=== PATIENT | female | born 1940 | race Caucasian/White ===

== ENCOUNTER 2019-05-03 07:15 | Outpatient (CLI) | payer MEDICARE, SELFPAY ==
[2019-05-03 07:55] LABS: Basophils Percent Auto 0.9 % (0.2-1.2); Eosinophils Absolute Auto 0.2 K/mm3 (0-0.3); Eosinophils Percent Auto 4.8 % (0-4.4); Hematocrit 44.7 % (37.0-47.0); Immature Granulocyte Absolute 0.01 K/mm3 (0.00-0.031); Immature Granulocyte Percent A 0.2 % (0-0.5); Lymphocytes Absolute Auto 1.21 K/mm3 (0.9-3.2); Lymphocytes Percent Auto 26.1 % (18.3-44.2); Mean Corpuscular HGB Conc 31.3 g/dl (32-36); Mean Corpuscular Hemoglobin 31.2 pg (26-34); Mean Corpuscular Volume 99.6 fl (80-100); Mean Platelet Volume 9.6 fl (7.4-10.4); Monocytes Absolute Auto 0.5 K/mm3 (0.1-0.6); Monocytes Percent Auto 10.6 % (2.6-8.5); Neutrophils Absolute Auto 2.7 K/mm3 (1.3-6.7); Neutrophils Percent Auto 57.4 % (45.5-73.1); Platelet Count Result 203 k/mm3 (150-375); Red Blood Count 4.49 M/mm3 (4.2-5.4); White Blood Count 4.6 K/mm3 (4.5-10.0)
[2019-05-03 08:11] LABS: Alanine Aminotransferase 22 U/L (4-35); Albumin Level 4.1 g/dL (3.5-5.1); Alkaline Phosphatase 83 U/L (38-126); Aspartate Amino Transferase 31 U/L (14-36); Bilirubin,Total 0.4 mg/dL (0.2-1.3); Blood Urea Nitrogen 15 mg/dL (7-17); Calcium 9.3 mg/dL (8.4-10.2); Carbon Dioxide 32 mmol/L (22-30); Chloride 100 mmol/L (98-107); Cholesterol 180 mg/dL (0-200); Estimated Glomerular Filt Rate > 60; Glucose 96 mg/dL (65-105); HDL Direct 61 mg/dL; Potassium 4.4 mmol/L (3.4-5.0); Sodium 142 mmol/L (137-145); Triglycerides 77 mg/dL (<150)
[2019-05-03 08:21] LABS: LDL Cholesterol Direct 93 mg/dL
[2019-05-03 08:40] LABS: Vitamin D 25 Hydroxy 56.6 ng/mL
== END 2019-05-03 07:16 | disposition home or self-care (01) ==
PROVIDERS: PCP Internal Medicine; Visit Provider Nurse Practitioner
DX: M85.80 Other specified disorders of bone density and structure, unspecified site (principal); I10 Essential (primary) hypertension; Z13.220 Encounter for screening for lipoid disorders; Z13.228 Encounter for screening for other metabolic disorders; E03.9 Hypothyroidism, unspecified
CPT/HCPCS: 36415; 80053; 80061; 82306; 84443; 85025

== ENCOUNTER 2020-01-01 15:07 | Outpatient (CLI) | payer MEDICARE, SELFPAY ==
--- NOTE | ~2020-01-01 | MM_ITS ---
EXAMINATION: MM screening [facility] BI w melissa HISTORY: Screening mammogram TECHNIQUE: Craniocaudal and mediolateral oblique 3-D tomosynthesis images were obtained and synthetic 2-D images were generated. CAD analysis was submitted and interpreted. COMPARISON: 12/27/2018, 12/21/2017 bilateral digital screening mammogram examinations BREAST PARENCHYMAL COMPOSITION: There are scattered areas of fibroglandular density. FINDINGS: Stable subcentimeter circumscribed masses on the right. There is no evidence of suspicious mass, calcification, or architectural distortion to suggest malignancy in either breast. There has be en no suspicious interval change. IMPRESSION: 1. No mammographic evidence of malignancy. 2. Recommend routine screening mammography in one year. BI-RADS Category 2: Benign finding(s). Reviewed, dictated and finalized at location A.
== END 2020-01-01 15:08 | disposition home or self-care (01) ==
LOC: ANHIMG 15:14
PROVIDERS: PCP Internal Medicine; Visit Provider Clinical Nurse Specialist
DX: Z12.31 Encounter for screening mammogram for malignant neoplasm of breast (principal)
CPT/HCPCS: 77063; 77067

== ENCOUNTER → 2020-07-22 13:16 | Outpatient (CLI) | payer MEDICARE, SELFPAY ==
--- NOTE | ~2020-07-22 | DEXA_ITS ---
Bone Density Report Name: Radha Elena Age: 79 Sex: Female Ethnicity: White Date of : 1940 Indication: osteopenia; parental hip fracture; height loss; Referring Provider: Paige Guerrier Study: Bone densitometry was performed. Exam Date: July 22, 2020 Accession number: [id number] Bone Density: Region BMD T-score Z-score Classification AP Spine (L1-L4) 0.983 -0.6 2.1 Normal Femoral Neck (Left) 0.650 -1.8 0.5 Osteopenia Total Hip (Left) 0.761 -1.5 0.6 Osteopenia Femoral Neck (Right) 0.657 -1.7 0.6 Osteopenia Total Hip (Right) 0.814 -1.0 1.0 Normal Total Hip Mean 0.788 -1.3 0.8 Osteopenia World Health Organization criteria for BMD impression classify patients as: Normal (T-score at or above -1.0), Osteopenia (T-score between -1.0 and -2.5), or Osteoporosis (T-score at or below -2.5). 10-year Fracture Risk(1): Major Osteoporotic Fracture 25% Hip Fracture 15% Reported Risk Factors: [place] (), Neck BMD=0.657, BMI=23.2, parental fracture (1) FRAX(R) Version 3.08. Fracture probability calculated for an untreated patient. Fracture probability may be lower if the patient has received treatment. Previous Exams: Region Exam Age BMD T-score BMD Change BMD Change Date g/cm2 vs Baseline vs Previous AP Spine(L1-L4) 07/22/2020 79 0.983 -0.6 0.092* 0.083* 06/30/2016 75 0.900 -1.3 0.009 -0.038* 05/28/2014 73 0.938 -1.0 0.047* 0.055* 04/14/2012 71 0.883 -1.5 -0.008 -0.023 08/11/2009 68 0.906 -1.3 0.015 0.019 06/16/2007 66 0.887 -1.5 -0.004 0.017 07/19/2006 65 0.870 -1.6 -0.021 -0.021 07/30/2005 64 0.891 -1.4 Total Hip(Left) 07/22/2020 79 0.761 -1.5 -0.032* -0.008 07/04/2018 77 0.769 -1.4 -0.025 -0.047* 06/30/2016 75 0.816 -1.0 0.023 0.003 05/28/2014 73 0.813 -1.1 0.020 0.002 04/14/2012 71 0.811 -1.1 0.018 -0.010 08/11/2009 68 0.821 -1.0 0.028* 0.013 06/16/2007 66 0.808 -1.1 0.015 0.021 07/19/2006 65 0.787 -1.3 -0.006 -0.006 07/30/2005 64 0.793 -1.2 Total Hip(Right) 07/22/2020 79 0.814 -1.0 -0.044* 0.003 07/04/2018 77 0.811 -1.1 -0.047* -0.045* 06/30/2016 75 0.856 -0.7 -0.002 0.016 05/28/2014 73 0.840 -0.8 -0.018 0.012 04/14/2012 71 0.829 -0.9 -0.030* -0.003 08/11/2009
== END ==
PROVIDERS: PCP Internal Medicine; Visit Provider Nurse Practitioner
DX: M85.88 Other specified disorders of bone density and structure, other site (principal); M85.852 Other specified disorders of bone density and structure, left thigh; M85.851 Other specified disorders of bone density and structure, right thigh
CPT/HCPCS: 77080

== ENCOUNTER 2020-07-27 08:07 | Emergency (ER) | payer MEDICARE, SELFPAY ==
--- NOTE | 2020-07-27 08:15 | ED.GENADULT ---
HPI - General Adult General Chief complaint: Skin/Abscess/Foreign Body Stated complaint: Rash Time Seen by Provider: 07/27/20 08:23 Source: patient and RN notes reviewed Mode of arrival: ambulatory Limitations: no limitations History of Present Illness HPI narrative: 79-year-old female presents with complaints of red, raised, and itching rash to chin and neck for the past 4 days. ?Radha reports increasing itching over the past 24 hours. ?Believes rash could be related to potting soil, Tuesday07/22/20 without protective wear, noticed rash Tuesday. ?Triamcinolone cream 0.5% (received from her PCP office on 07/25/20) and Benadryl 25mg (last 03:30am today) without relief. ?Denies new changes in ?personal hygiene products or laundry detergent. ?No new foods or medications. ?Swelling to RT upper lid without eye disturbance. ?Denies eye drainage, blurred vision, or vision loss. ?No burning, bleeding, or drainage. ?Denies fever, chills, headaches, weakness, fatigue, myalgia, facial swelling, or tongue swelling. ?Denies chest pain or dyspnea. ?Denies nausea, vomiting, abdominal pain. ?Tolerating po intake well. ?The patient reports she has not been diagnosed with COVID-19. ?The patient reports she received 2 Pfizer COVID-19 vaccines. ?The patient reports she is not waiting for the results of a COVID-19 lab test. ?The patient reports she does not have a new or worsening cough or shortness of breath. ?The patient reports she does not have any rhinorrhea, congestion, sore throat, loss of taste or smell, and diarrhea. ?Denies recent traveling. ?Denies concerns for COVID-19 or exposures. ?At this time, the patient is not suspected of having COVID-19. Some parts of this dictation were generated by voice recognition software and may contain typographical and/or grammatical inaccuracies. Related Data Home Medications Medication Instructions Recorded Confirmed amlodipine 5 mg tablet 5 mg PO DAILY 05/10/19 07/25/20 calcium carbonate 500 mg (1,250 1 tablet PO DAILY 05/10/19 07/25/20 mg)-vitamin D3 200 unit tablet cholecalciferol (vitamin D3) 25 1,000 unit PO DAILY 05/10/19 07/25/20 mcg (1,000 unit) capsule cyclobenzaprine 5 mg tablet 5 mg PO DAILY PRN tablet 05/10/19 07/25/20 Allergies Allergy/AdvReac Type Severity Reaction Status Date / Time alendronate sodium Allergy Unknown Anaphylaxis Verified 07/27/20 08:15 erythromycin base Allergy Unknown GI upset Verified 07/27/20 08:15 metronidazole Allergy Unknown pass out Verified 07/27/20 08:15 Review of Systems Review of Systems: Narrative: CONSTITUTIONAL: Denies fever, chills, sweats. EYES: Denies visual changes, redness, discharge. ENT: Denies rhinorrhea, congestion, sore throat, otalgia. CARDIOVASCULAR: Denies chest pain, palpitations, edema. RESPIRATORY: Denies dyspnea, wheezing, cough. GASTROINTESTINAL: Denies abdominal pain, nausea, vomiting, diarrhea. SKIN: Complains of red, raised, and itching rash to chin and neck. Denies drainage. MUSCULOSKELETAL: Denies acute back pain, joint pain, or myalgia. NEUROLOGIC: Denies numbness or focal weakness. PSYCHIATRIC: Denies anxiety or depression. All other systems reviewed & are unremarkable except as noted in HPI and below. [facility] Past Medical History Medical History (Updated 07/27/20 @ 08:56 by JONATAN Verde) Chicken pox GERD (gastroesophageal reflux disease) Hemorrhoids Removed 09/2014 History of measles, mumps, or rubella History of vaginal delivery Hypertension Hypothyroidism IBS (irritable bowel syndrome) Lumbar back pain Mononucleosis Myocardial infarction Osteopenia Post-menopausal Vitamin deficiency Surgical History Surgical History (Updated 07/27/20 @ 08:56 by JONATAN Verde) H/O tubal ligation BL 1982 History of hemorrhoidectomy Family History Family History Mother Family history of dementia Father Family history of diabetes mellitus in [facility]
[2020-07-27 08:18] VITALS: BP 125/61; PULSE 65; RESP 16; TEMP 36.5; O2SAT 99
== END 2020-07-27 08:41 | disposition home or self-care (01) ==
PROVIDERS: Emergency Provider Nurse Practitioner Family; PCP Internal Medicine
DX: L25.9 Unspecified contact dermatitis, unspecified cause (principal); K21.9 Gastro-esophageal reflux disease without esophagitis; I10 Essential (primary) hypertension; E03.9 Hypothyroidism, unspecified; I25.2 Old myocardial infarction; M81.0 Age-related osteoporosis without current pathological fracture
CPT/HCPCS: 99213; G0463

== ENCOUNTER → 2021-01-20 13:53 | Outpatient (CLI) | payer MEDICARE, SELFPAY ==
--- NOTE | ~2021-01-20 | MM_ITS ---
EXAMINATION: MM screening [facility] BI w melissa HISTORY: Screening mammogram TECHNIQUE: Craniocaudal and mediolateral oblique 3-D tomosynthesis images were obtained and synthetic 2-D images were generated. CAD analysis was submitted and interpreted. COMPARISON: 01/01/2020, 12/27/2018 BREAST PARENCHYMAL COMPOSITION: There are scattered areas of fibroglandular density. FINDINGS: There is no evidence of suspicious mass, calcification, or architectural distortion to sugg est malignancy in either breast. There has been no suspicious interval change. IMPRESSION: 1. No mammographic evidence of malignancy. 2. Recommend routine screening mammography in one year. BI-RADS Category 1: Negative Reviewed, dictated and finalized at location A. [employer]
== END ==
PROVIDERS: PCP Internal Medicine; Visit Provider Internal Medicine
DX: Z12.31 Encounter for screening mammogram for malignant neoplasm of breast (principal)
CPT/HCPCS: 77063; 77067

== ENCOUNTER 2021-02-27 09:44 | Emergency (ER) | payer MEDICARE, SELFPAY ==
[2021-02-27 09:54] VITALS: BP 155/63; PULSE 76; RESP 16; TEMP 37.1; O2SAT 97
--- NOTE | 2021-02-27 10:41 | ED.URI ---
HPI - URI/Sore Throat General Chief Complaint: Upper Respiratory Infection Stated Complaint: SORE THROAT Time Seen by Provider: 02/27/21 10:30 Source: patient and RN notes reviewed Mode of arrival: ambulatory Limitations: no limitations History of Present Illness HPI Narrative: Patient presents today with a 2-day history of sore throat that gets better throughout the day, dry cough, rhinorrhea, sneezing. Denies fever, nausea, vomiting, diarrhea. She takes Pia during the day, Zyrtec at night, and zinc without much relief. MD elicited complaint: cough, sore throat and rhinorrhea Related Data Home Medications Medication Instructions Recorded Confirmed amlodipine 5 mg tablet 5 mg PO DAILY 05/10/19 02/24/21 calcium carbonate 500 mg-vitamin 1 tablet PO DAILY 05/10/19 02/24/21 D3 5 mcg (200 unit) tablet cholecalciferol (vitamin D3) 25 1,000 unit PO DAILY 05/10/19 02/24/21 mcg (1,000 unit) capsule multivitamin with minerals 1 tablet PO DAILY 01/14/21 02/24/21 Allergies Allergy/AdvReac Type Severity Reaction Status Date / Time alendronate sodium Allergy Unknown Anaphylaxis Verified 02/24/21 13:35 erythromycin base Allergy Unknown GI upset Verified 02/24/21 13:35 metronidazole Allergy Unknown pass out Verified 02/24/21 13:35 Review of Systems Review of Systems: CONSTITUTIONAL: Denies body aches, fever, chills, or sweats. EYES: Denies visual changes, redness, or discharge. ENT: Denies congestion, or otalgia.+ Sore throat, rhinorrhea, sneezing CARDIOVASCULAR: Denies chest pain, palpitations, or edema. RESPIRATORY: Denies dyspnea.+ Cough GASTROINTESTINAL: Denies abdominal pain, nausea, vomiting, or diarrhea. GENITOURINARY: Denies dysuria or hematuria. SKIN: Denies rash, itching, or wounds. MUSCULOSKELETAL: Denies back pain, joint pain, or myalgia. NEUROLOGIC: Denies headache, numbness, tingling, or weakness. PSYCH: Denies depression or anxiety. [facility] Past Medical History Medical History Chicken pox GERD (gastroesophageal reflux disease) Hemorrhoids Removed 09/2014 History of measles, mumps, or rubella History of vaginal delivery Hypertension Hypothyroidism IBS (irritable bowel syndrome) Lumbar back pain Mononucleosis Myocardial infarction Osteopenia Post-menopausal Vitamin deficiency Surgical History Surgical History H/O tubal ligation 1982 History of hemorrhoidectomy Family History Family History Mother Family history of dementia Father Family history of diabetes mellitus in first degree relative Acute myocardial infarction Dementia Sibling H/O aortic valve replacement Other Diabetes mellitus Family history of arthritis Hypertension Social History Social History Smoking status: Never smoker Tobacco type: cigarettes Second hand tobacco smoke exposure: No Alcohol intake: current Substance use: never Substance use type: does not use Gender identity (if verbalized by the patient): Female Sexual Orientation (if Verbalized by the Patient): Straight or Heterosexual Comments At time of signature, I have reviewed and agree with nursing past medical, surgical, social and family history unless otherwise noted. Please see nursing chart for further information. There is no relevant family history pertinent to the presenting complaint Exam Narrative: GENERAL: Mildly ill-appearing, well-nourished, and in no acute distress. HEAD: Normocephalic, atraumatic. EYES: EOMI. No redness or drainage. Conjunctivae normal. ENT: Mucous membranes pink and moist. Nares congested. No rhinorrhea. TMs normal bilaterally. Throat normal. Uvula midline. NECK: Normal AROM. Supple. No lymphadenopathy. CHEST: No respiratory distress. Clear to ausculta
== END 2021-02-27 10:50 | disposition home or self-care (01) ==
PROVIDERS: Emergency Provider Nurse Practitioner; PCP Internal Medicine
DX: J06.9 Acute upper respiratory infection, unspecified (principal); K21.9 Gastro-esophageal reflux disease without esophagitis; I11.0 Hypertensive heart disease with heart failure; E03.9 Hypothyroidism, unspecified; I25.2 Old myocardial infarction; M85.80 Other specified disorders of bone density and structure, unspecified site; E55.9 Vitamin D deficiency, unspecified
CPT/HCPCS: 99211; G0463

== ENCOUNTER → 2021-03-02 08:55 | Outpatient (CLI) | payer MEDICARE, SELFPAY ==
[2021-03-02 19:04] LABS: SARS-CoV-2 RNA PCR Negative
== END ==
PROVIDERS: PCP Internal Medicine; Visit Provider Internal Medicine
DX: R05.9 Cough, unspecified (principal); Z20.822 Contact with and (suspected) exposure to COVID-19
CPT/HCPCS: C9803; U0003; U0005

== ENCOUNTER → 2021-07-24 13:41 | Outpatient (CLI) | payer MEDICARE, SELFPAY ==
--- NOTE | ~2021-07-24 | CT_ITS ---
EXAMINATION: CT abdomen pelvis wo/w con DATE: 07/24/2021 14:27 INDICATION: Hematuria. TECHNIQUE: Computed tomography (CT) of the abdomen and pelvis was performed without and with intraven ous contrast using a total of 130 mL Omnipaque-350 intravenous contrast with a double-bolus technique for simultaneous opacification of the renal parenchyma and renal collecting system. Automated exposu re control and iterative reconstruction technique were employed. The dose-length product was 1185.53 mGy-cm. COMPARISON: None FINDINGS: The visualized portions of the lung bases demonstrate mild atelectasis. No pleural effusion. The hear t size is normal. No pericardial effusion. The liver, gallbladder, spleen, pancreas, adrenal glands, and kidneys are normal. There is a 2 mm stone in left kidney. The ureters are well opacified and are normal. The bladder is normal. There is diverticulosis of the colon without evidence of diverticuliti s. There are no dilated loops of bowel. The appendix is normal. There are no pathologically enlarged lymph nodes. There is no free intraperitoneal fluid. There are chronic bilateral L5 pars defects. The re is 7 mm anterolisthesis of L5 on S1. There is severe lumbar stenosis. IMPRESSION: 1. 2 mm nonobstructing left kidney stone. Reviewed, dictated and finalized at location A.
[2021-07-24 14:05] LABS: Estimated Glomerular Filt Rate > 60
== END ==
PROVIDERS: PCP Internal Medicine; Visit Provider Urology
DX: R31.9 Hematuria, unspecified (principal); N20.0 Calculus of kidney
CPT/HCPCS: 74178; Q9967

== ENCOUNTER → 2021-07-31 12:24 | Outpatient (CLI) | payer MEDICARE, SELFPAY ==
--- NOTE | ~2021-07-31 | XR_ITS ---
EXAMINATION: HAND-POONAM ARTHRITIS 3+VIEWS DATE: 07/31/2021 13:00 INDICATION: Pain at the fingers of the left hand TECHNIQUE: Posteroanterior, lateral, and oblique views of the left and of the right hands as well as a ballcatchers view of both hands were obtained. COMPARISON: None. FINDINGS: 2 mm ulnar minus variance on both the left and right. Alignment is otherwise normal at the bilateral hands and risks. No fracture. Relatively symmetric polyarticular osteoarthritis at the bilateral hand s, severe at the bilateral first carpometacarpal joints, the left second and right second and third d istal interphalangeal joints, moderate at the bilateral triscaphe joints and and and left third dista l interphalangeal joints and mild at the bilateral distal radioulnar and majority the remaining inter phalangeal joints. Central erosions with gullwing configuration at the base of the bilateral second a nd right third distal phalanges consistent with erosive arthritis. Diffuse osteopenia. Soft tissues a re unremarkable. IMPRESSION: 1. 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 Reviewed, dictated and finalized at location B. IMPRESSION: 1. Relatively symmetric bilateral moderate to severe osteoarthritis at the radi al aspect of the carpi and at the second and third distal interphalangeal joint s.
== END ==
PROVIDERS: PCP Internal Medicine; Visit Provider Nurse Practitioner
DX: M79.645 Pain in left finger(s) (principal); M79.644 Pain in right finger(s)
CPT/HCPCS: 73130

== ENCOUNTER 2021-08-24 10:21 | Outpatient (RCR) | payer MEDICARE, SELFPAY ==
[2021-08-24 11:32] VITALS: BP 148/70; PULSE 66; RESP 20; TEMP 37; O2SAT 99
[2021-08-24] MEDS: FAMOTIDINE 20 MG TABLET PO (11:36)
[2021-08-24] MEDS: diphenhydrAMINE HCl CAP 25 MG CAPSULE PO (11:36)
[2021-08-24] MEDS: ACETAMINOPHEN 325 MG TABLET 650 MG PO (11:36)
[2021-08-24] MEDS: BEBTELOVIMAB 175 MG/2 ML VIAL IV PUSH (11:57)
[2021-08-24 12:43] VITALS: BP 154/66; PULSE 56; O2SAT 99
== END 2021-08-24 16:00 ==
LOC: AMCINF 10:21
PROVIDERS: PCP Nurse Practitioner; Referring Provider Nurse Practitioner; Visit Provider Internal Medicine Hematology & Oncology
DX: U07.1 COVID-19 (principal)
CPT/HCPCS: A9270; M0222; Q0222

== ENCOUNTER 2021-09-24 11:33 | Outpatient (CLI) | payer MEDICARE, SELFPAY ==
--- NOTE | ~2021-09-24 | CT_ITS ---
EXAMINATION: CT abdomen pelvis wo con DATE: 09/24/2021 11:57 INDICATION: Abdominal pain with guarding. Umbilical pain since 5 days ago. TECHNIQUE: Computed tomography (CT) of the abdomen and pelvis was performed without intravenous contr ast. Automated exposure control and iterative reconstruction technique were employed. Exam dose: 351 .03 mGy-cm total exam DLP. COMPARISON: 07/24/2021 CT abdomen pelvis without and with IV contrast material FINDINGS: Minimal discoid atelectasis and/or scarring at the lung bases. Normal heart size. No perica rdial or pleural effusion. The liver, gallbladder, bile ducts, spleen, pancreas, pancreatic duct, and adrenal glands are unremar kable. Pinpoint upper pole nonobstructing left renal calculus. No urinary tract calculus or hydroureteroneph rosis is detected. The urinary bladder is unremarkable. Uterus and adnexal areas are unremarkable. Extensive calcification of the abdominal aorta and calcification at the origins of the celiac and sup erior mesenteric and renal arteries. No abdominal aortic aneurysm. No intraperitoneal or retroperiton eal or pelvic mass lesion or adenopathy or ascites. Normal appendix. There is a suture line at the rectosigmoid area. There are numerous diverticula of the left and right colon; no CT evidence of diverticulitis. No bowel obstruction, bowel wall thickening, pneumatosis or intraperitoneal free air. Small fat-containing umbilical hernia. Bilateral L5 pars interarticularis defects with associated grade 2 anterolisthesis at L5-S1. Severe d egenerative disc disease at L5-S1, moderately severe degenerative disc disease at L2-3 and L1-2. No suspicious osteolytic lesions. IMPRESSION: Normal appendix Diverticulosis of left and right colon Bilateral L5 pars interarticularis defects with associated grade 2 anterolisthesis and severe degener ative disc disease at L5-S1 Reviewed, dictated and finalized at Location A. Reviewed, dictated and finalized at location B. IMPRESSION: Normal appendix Diverticulosis of left and right colon Bilateral L5 pars interarticularis defects with associated grade 2 anterolisthe sis and severe degenerative disc disease at L5-S1
== END 2021-09-24 11:34 | disposition home or self-care (01) ==
PROVIDERS: PCP Nurse Practitioner; Visit Provider Nurse Practitioner
DX: K59.00 Constipation, unspecified (principal); R10.9 Unspecified abdominal pain; K57.30 Diverticulosis of large intestine without perforation or abscess without bleeding
CPT/HCPCS: 74176

== ENCOUNTER 2022-02-03 01:56 | Day surgery (SDC) | payer MEDICARE, SELFPAY ==
[2022-01-18 13:51] VITALS: BMI 23.4
--- NOTE | 2022-02-02 15:24 | PM.HPGS ---
History of Present Illness History of Present Illness Consent: Risks, benefits, and alternatives have been discussed and questions answered. Patient agrees to proceed with procedure. Chief complaint: epigastric pain Narrative: Radha Elena is a 81 year old female who was being investigated for indigestion and epigastric discomfort. She mainly gets this after spicy foods such as barbecue. Pepcid has given her some relief. Often, immediately after finishing a meal it feels as though her food is stuck and not passing through the stomach. She never needs to stop eating because something is caught in her chest. Weight is stable Review of Systems Review of Systems: All systems reviewed & are unremarkable except as noted in HPI and below PMFSH Past Medical History Medical History Chicken pox GERD (gastroesophageal reflux disease) Hemorrhoids Removed 09/2014 History of measles, mumps, or rubella History of vaginal delivery Hypertension Hypothyroidism IBS (irritable bowel syndrome) Lumbar back pain Mononucleosis Myocardial infarction Osteopenia Post-menopausal Vitamin deficiency Surgical History Surgical History H/O tubal ligation 1982 History of hemorrhoidectomy Family History Family History Mother Family history of dementia Father Family history of diabetes mellitus in first degree relative Acute myocardial infarction Dementia Sibling H/O aortic valve replacement Other Diabetes mellitus Family history of arthritis Hypertension Social History Social History Smoking status: Never smoker Tobacco type: cigarettes Second hand tobacco smoke exposure: Yes Additional smoking assessment comments: Was exposed to second hand ciggerette smoke for 55years- father and Alcohol intake: never Drinks per week: 2 Substance use: never Substance use type: does not use Living arrangements: with family Gender identity (if verbalized by the patient): Female Sexual Orientation (if Verbalized by the Patient): Straight or Heterosexual Spiritual care concerns: No Meds Home Medications and Allergies Home Medications Medication Instructions Recorded Confirmed Type amlodipine 5 mg tablet 5 mg PO DAILY 05/10/19 02/03/22 History calcium carbonate 500 mg-vitamin 1 tablet PO DAILY 05/10/19 02/03/22 History D3 5 mcg (200 unit) tablet ([place] 500 + D3) cholecalciferol (vitamin D3) 25 1,000 unit PO DAILY 05/10/19 02/03/22 History mcg (1,000 unit) capsule multivitamin with minerals 1 tablet PO DAILY 01/14/21 02/03/22 History (Hair,Skin and Nails tablet) levothyroxine 50 mcg tablet 50 mcg PO DAILY #90 tabs 05/05/21 02/03/22 Rx Allergies Allergy/AdvReac Type Severity Reaction Status Date / Time alendronate sodium Allergy Unknown Anaphylaxis Verified 02/03/22 09:20 erythromycin base Allergy Unknown GI upset Verified 02/03/22 09:20 metronidazole Allergy Unknown pass out Verified 02/03/22 09:20 Exam Const: General: alert Orientation/consciousness: patient oriented x3 Resp: Auscultation: clear to auscultation bilaterally Cardio: Rhythm: regular rhythm GI: GI Palp: Yes Soft to palpation and No Tenderness to palpation present (GI) Neuro: General: patient oriented x3 Assessment and Plan Assessment and plan (1) Epigastric pain: Code(s): R10.13 - Epigastric pain Status: Acute Assessment and Plan: EGD with possible biopsy or dilatation or cautery.
[2022-02-03 09:22] VITALS: BP 132/63; PULSE 63; RESP 16; TEMP 36.6; O2SAT 97
[2022-02-03] MEDS: LACTATED RINGERS 1,000 ML 150 ML IV CONT (09:25)
--- NOTE | 2022-02-03 09:27 | WPDANESEPPF ---
Anes - Initial Pre Proc Eval Procedure: Operation Date: 02/03/22 14:30 Proposed Procedures p Esophagogastroduodenoscopy EGD - Richard Perdomo MD Date/Time: 02/03/22 09:27 Surgeon: Richard Perdomo MD Pre Op Diagnosis: epigastric pain Patient Data Age: 81 Gender: F Height: 1.65 m Weight: 64.6 kg Last Vital Signs Temp 36.6 C 02/03/22 09:22 Pulse 63 02/03/22 09:22 Resp 16 02/03/22 09:22 BP 132/63 02/03/22 09:22 Pulse Ox 97 02/03/22 09:22 O2 Del Method Room Air 02/03/22 09:22 Allergies Allergy/AdvReac Type Severity Reaction Status Date / Time alendronate sodium Allergy Unknown Anaphylaxis Verified 02/03/22 09:20 erythromycin base Allergy Unknown GI upset Verified 02/03/22 09:20 metronidazole Allergy Unknown pass out Verified 02/03/22 09:20 Home Medications Medication Instructions Recorded Confirmed Type amlodipine 5 mg tablet 5 mg PO DAILY 05/10/19 02/03/22 History calcium carbonate 500 mg-vitamin 1 tablet PO DAILY 05/10/19 02/03/22 History D3 5 mcg (200 unit) tablet ([place] 500 + D3) cholecalciferol (vitamin D3) 25 1,000 unit PO DAILY 05/10/19 02/03/22 History mcg (1,000 unit) capsule multivitamin with minerals 1 tablet PO DAILY 01/14/21 02/03/22 History (Hair,Skin and Nails tablet) levothyroxine 50 mcg tablet 50 mcg PO DAILY #90 tabs 05/05/21 02/03/22 Rx Patient hx anesthesia problems: none Family hx anesthesia problems: none Results Review: All pre-operative results and documents have been reviewed as part of the pre-operative evaluation. [facility] Past Medical History Medical History (Updated 01/12/22 @ 12:04 by Richard Perdomo MD) Chicken pox GERD (gastroesophageal reflux disease) Hemorrhoids Removed 09/2014 History of measles, mumps, or rubella History of vaginal delivery Hypertension Hypothyroidism IBS (irritable bowel syndrome) Lumbar back pain Mononucleosis Myocardial infarction Osteopenia Post-menopausal Vitamin deficiency Surgical History Surgical History H/O tubal ligation 1982 History of hemorrhoidectomy Family History Family History Mother Family history of dementia Father Family history of diabetes mellitus in first degree relative Acute myocardial infarction Dementia Sibling H/O aortic valve replacement Other Diabetes mellitus Family history of arthritis Hypertension Social History Social History Smoking status: Never smoker Tobacco type: cigarettes Second hand tobacco smoke exposure: Yes Additional smoking assessment comments: Was exposed to second hand ciggerette smoke for 55years- father and Alcohol intake: never Drinks per week: 2 Substance use: never Substance use type: does not use Living arrangements: with family Gender identity (if verbalized by the patient): Female Sexual Orientation (if Verbalized by the Patient): Straight or Heterosexual Spiritual care concerns: No Anes - Eval Final PreProcedure Day of Procedure 02/03/22 09:27 Patient weight: normal Heart: regular rate and rhythm Lungs: clear to auscultation and normal air movement Airway: Mallampati scale class II Neurological: alert and oriented Last oral intake: >/= 8 hours ASA classification: III Emergent: no Anesthetic plan: proceed Anesthesia type and monitoring: general GIVS Results Review: All pre-operative results and documents have been reviewed as part of the pre-operative evaluation. Informed Consent: The patient's anesthetic plan and its attendant risks and benefits were discussed with the patient/family/POA. Questions were solicited and answers provided to the satisfaction of the patient/family/POA.
[2022-02-03 10:47] VITALS: BP 123/71; PULSE 76; RESP 29; O2SAT 99
[2022-02-03 10:57] VITALS: BP 121/69; PULSE 62; RESP 15; O2SAT 100
[2022-02-03 11:07] VITALS: BP 138/77; PULSE 60; RESP 26; O2SAT 99
== END 2022-02-03 11:18 | disposition home or self-care (01) ==
PROVIDERS: PCP Nurse Practitioner; Visit Provider Internal Medicine Gastroenterology
PROC: 0DJ08ZZ Inspection of Upper Intestinal Tract, Via Natural or Artificial Opening Endoscopic (ICD-10-PCS; CPT 43235; principal; 2022-02-03 14:30)
DX: K21.00 Gastro-esophageal reflux disease with esophagitis, without bleeding (principal); I10 Essential (primary) hypertension; E03.9 Hypothyroidism, unspecified; I25.2 Old myocardial infarction; M85.80 Other specified disorders of bone density and structure, unspecified site
CPT/HCPCS: 43239; 87081; 88305; J7120

== ENCOUNTER 2022-02-21 10:29 | Emergency (ER) | payer MEDICARE, SELFPAY ==
--- NOTE | ~2022-02-21 | CT_ITS ---
EXAMINATION: CTA chest PE protocol DATE: 02/21/2022 11:46 INDICATION: Shortness of breath TECHNIQUE: Computed tomography angiography (CTA) of the chest was performed with 100 mL Omnipaque-350 intravenous contrast timed to evaluate the pulmonary arteries. Coronal maximum intensity projection 3D-reconstructions were created by the technologist. The dose-length product (DLP) was 206.73 mGy-cm. Automated exposure control and iterative reconstruction technique were employed. COMPARISON: None. FINDINGS: The pulmonary arteries are well-opacified there are filling defects in subsegmental pulmona ry arterial branches in the medial aspect of the right lower lobe. There is mild dependent atelectasi s. No pleural effusion or pneumothorax. No pathologically enlarged thoracic lymph nodes are identifie d. The heart size is normal. There appears to be stenosis of the left brachiocephalic vein at the jos gin of the superior vena cava resulting in multiple collateral vessels. There is moderate thoracic sp ondylosis. IMPRESSION: 1. Subsegmental pulmonary emboli in the medial aspect of the right lower lobe. These findings were di scussed with Shaylee Espinal PA-C in the Emergency Department at 1212 hours on 02/21/2022. Reviewed, dictated and finalized at location A. MARKETING SPECIALIST IMPRESSION: 1. Subsegmental pulmonary emboli in the medial aspect of the right lower lobe. These findings were discussed with Shaylee Espinal PA-C in the Emergency Department at 1212 hours on 02/21/2022.
--- NOTE | ~2022-02-21 | US_ITS ---
EXAMINATION: US venous doppler [facility] DATE: 02/21/2022 13:43 INDICATION: Pulmonary embolism. Shortness of breath. TECHNIQUE: Grayscale ultrasound images without and with compression and Doppler ultrasound images of the bilateral lower extremity veins were obtained. COMPARISON: None. FINDINGS: There is a small amount of nonocclusive thrombus in the qyfkl-vch-wphc portion of the right popliteal vein. The visualized portions of right common femoral vein, profunda (deep) femoral vein, femoral ve in, posterior tibial veins, peroneal veins and greater saphenous vein outflow are patent. The visualized portions of left common femoral vein, profunda femoral vein, femoral vein, popliteal v ein, posterior tibial veins, peroneal veins and greater saphenous vein outflow are patent. IMPRESSION: 1. Small amount of nonocclusive deep venous thrombus in the tfjxh-erz-sllp portion of the right popl iteal vein. 2. No deep venous thrombosis in the left lower limb. Reviewed, dictated and finalized at location A. DRIVING MACHINE OPERATOR IMPRESSION: 1. Small amount of nonocclusive deep venous thrombus in the qhpyc-yaa-zlqg por tion of the right popliteal vein. 2. No deep venous thrombosis in the left lower limb.
--- NOTE | ~2022-02-21 | XR_ITS ---
EXAMINATION: XR chest 2V DATE: 02/21/2022 10:55 INDICATION: Heart palpitations TECHNIQUE: AP and lateral views of the chest are obtained. COMPARISON: 09/27/2014 FINDINGS: The lungs are free of acute opacities. No pleural effusion or pneumothorax. The cardiomedia stinal silhouette is normal. There is mild thoracic spondylosis. IMPRESSION: 1. No acute cardiopulmonary abnormality. Reviewed, dictated and finalized at location A. OR MAKER
[2022-02-21 10:28] VITALS: BP 170/89; PULSE 80; RESP 16; TEMP 36.8; O2SAT 100
--- NOTE | 2022-02-21 10:31 | ECG_ITS ---
Measurements Intervals [place] Rate: 80 P: 40 OR: 186 QRS: -38 QRSD: 89 T: 73 QT: 394 QTc: 456 Interpretive Statements SINUS RHYTHM LEFT AXIS DEVIATION [QRS AXIS < -30] POSSIBLE RIGHT VENTRICULAR CONDUCTION DELAY [RSR (QR) IN V1/V2] NONSPECIFIC ST & T-WAVE ABNORMALITY NO PREVIOUS ECG AVAILABLE FOR COMPARISON Electronically Signed On 02-21-2022 14:49:12 [employer] by Stephie Reis M.D.
--- NOTE | 2022-02-21 10:40 | ED.ARRPALP ---
HPI - Arrhythmia/Palpitations General Chief Complaint: Arrhythmia/Palpitations Stated Complaint: irregular heart rate Time Seen by Provider: 02/21/22 10:31 History of Present Illness HPI narrative: 81-year-old female here for evaluation of fast heart rate for the past several days. Patient states that she will be going about her daily activities and noticed that her heart rate will occasionally be in the 80s to 100s. She is concerned because her heart rate is typically in the 60s. Patient states that when her heart rate is fast she feels short of breath and lightheaded. She denies syncope, chest pain, nausea, vomiting, diaphoresis. She has had a sore throat, low-grade temperatures and has had body aches for the past 2 days as well. No cough, hemoptysis. Related Data Home Medications Medication Instructions Recorded Confirmed amlodipine 5 mg tablet 5 mg PO DAILY 05/10/19 02/03/22 calcium carbonate 500 mg-vitamin 1 tablet PO DAILY 05/10/19 02/03/22 D3 5 mcg (200 unit) tablet (Os-[place]icho 500 + D3) cholecalciferol (vitamin D3) 25 1,000 unit PO DAILY 05/10/19 02/03/22 mcg (1,000 unit) capsule multivitamin with minerals 1 tablet PO DAILY 01/14/21 02/03/22 (Hair,Skin and Nails tablet) Allergies Allergy/AdvReac Type Severity Reaction Status Date / Time alendronate sodium Allergy Unknown Anaphylaxis Verified 02/18/22 09:55 erythromycin base Allergy Unknown GI upset Verified 02/18/22 09:55 metronidazole Allergy Unknown pass out Verified 02/18/22 09:55 Review of Systems Review of Systems: Gen.: Reports low-grade temps. Eyes: Denies eye pain or visual change ENT: Reports sore throat Respiratory: Denies shortness of breath or cough CV: Reports palpitations. Denies chest pain GI: Denies abdominal pain nausea, emesis or diarrhea denies burning, urgency, frequency or hematuria Musculoskeletal: Denies back pain or muscle pain Neuro: Denies numbness, tingling, weakness or focal weakness Skin: Denies rash Except as documented, all other systems reviewed and negative PMFSH Past Medical History Medical History Chicken pox GERD (gastroesophageal reflux disease) Hemorrhoids Removed 09/2014 History of measles, mumps, or rubella History of vaginal delivery Hypertension Hypothyroidism IBS (irritable bowel syndrome) Lumbar back pain Mononucleosis Myocardial infarction Osteopenia Post-menopausal Vitamin deficiency Surgical History Surgical History H/O tubal ligation 1982 History of hemorrhoidectomy Family History Family History Mother Family history of dementia Father Family history of diabetes mellitus in first degree relative Acute myocardial infarction Dementia Sibling H/O aortic valve replacement Other Diabetes mellitus Family history of arthritis Hypertension Social History Social History (Updated 02/18/22 @ 09:57 by Kiara Thakkar MA) Smoking status: Never smoker Tobacco type: cigarettes Second hand tobacco smoke exposure: Yes Additional smoking assessment comments: Was exposed to second hand ciggerette smoke for 55years- father and Alcohol intake: never Drinks per week: 2 Substance use: never Substance use type: does not use Lack of Transportation: No Lack of Food: Never True Current Housing: I Have Housing Concerned About Future Housing: No Difficulty Paying Gas/Electric Bills: No Difficulty Paying for Meds: No Currently Unemployed: No Education: High School Diploma/GED Difficulty w/ Childcare or Family Care: No Additional living arrangements comments: Lives with . Gender identity (if verbalized by the patient): Female Sexual Orientation (if Verbalized by the Patient): Straight or Heterosexual Spiritual care concerns: No Exam Narrative: A
[2022-02-21 10:58] LABS: Basophils Percent Auto 0.7 % (0.2-1.2); Eosinophils Absolute Auto 0.1 K/mm3 (0-0.3); Eosinophils Percent Auto 1.8 % (0-4.4); Hematocrit 45.7 % (37.0-47.0); Hemoglobin 14.8 g/dL (12.0-15.0); Immature Granulocyte Absolute 0.01 K/mm3 (0.00-0.031); Immature Granulocyte Percent A 0.2 % (0-0.5); Lymphocytes Absolute Auto 1.72 K/mm3 (0.9-3.2); Lymphocytes Percent Auto 30.8 % (18.3-44.2); Mean Corpuscular HGB Conc 32.4 g/dl (32-36); Mean Corpuscular Hemoglobin 31.7 pg (26-34); Mean Corpuscular Volume 97.9 fl (80-100); Mean Platelet Volume 9.4 fl (7.4-10.4); Monocytes Absolute Auto 0.4 K/mm3 (0.1-0.6); Monocytes Percent Auto 7.5 % (2.6-8.5); Neutrophils Absolute Auto 3.3 K/mm3 (1.3-6.7); Platelet Count Result 203 k/mm3 (150-375); Red Blood Count 4.67 M/mm3 (4.2-5.4); Red Cell Distribution Width 12.1 % (11.5-14.5); White Blood Count 5.6 K/mm3 (4.5-10.0)
[2022-02-21 11:00] LABS: Alanine Aminotransferase 20 U/L (6-35); Albumin Level 4.4 g/dL (3.5-5.1); Alkaline Phosphatase 77 U/L (38-126); Anion Gap 7 mmol/L (8-16); Aspartate Amino Transferase 31 U/L (14-36); Bilirubin,Total 0.3 mg/dL (0.2-1.3); Blood Urea Nitrogen 18 mg/dL (7-17); Calcium 9.3 mg/dL (8.4-10.2); Carbon Dioxide 28 mmol/L (22-30); Chloride 103 mmol/L (98-107); Estimated CRCL calculation 35 ml/min; Estimated Glomerular Filt Rate 53; Glucose 110 mg/dL (65-110); Lipase 122 U/L (23-300); Potassium 3.9 mmol/L (3.4-5.0); Sodium 138 mmol/L (137-145)
[2022-02-21 11:01] LABS: Prothrombin Time 12.6 Seconds (11.1-14.7)
[2022-02-21 11:02] LABS: Partial Thromboplastin Time 25.7 SECONDS (22.3-36.8)
[2022-02-21 11:08] VITALS: PULSE 84
[2022-02-21 11:11] LABS: D Dimer 3.81 ug/mL (<0.48)
[2022-02-21 11:19] LABS: NT Pro B Type Natriuretic Pept 30 pg/mL (5-100); Troponin I < 0.012 ng/mL (0.000-0.034)
[2022-02-21 11:43] LABS: Influenza A QL RT-PCR Negative (Negative); Influenza B QL RT-PCR Negative (Negative); SARS-CoV-2 RNA PCR Negative
[2022-02-21 12:04] VITALS: BP 143/73; PULSE 73; RESP 18; O2SAT 95
[2022-02-21] MEDS: ENOXAPARIN 80 MG/0.8 ML SYRINGE 65 MG SUB-Q (13:35)
[2022-02-21 13:37] VITALS: BP 149/76; PULSE 71; RESP 15; O2SAT 99
[2022-02-21 14:30] VITALS: BP 151/75; PULSE 66; RESP 12; O2SAT 100
== END 2022-02-21 15:08 | disposition home or self-care (01) ==
PROVIDERS: Emergency Medicine; Emergency Provider Physician Assistant; PCP Internal Medicine
DX: I26.99 Other pulmonary embolism without acute cor pulmonale (principal); E03.9 Hypothyroidism, unspecified; I10 Essential (primary) hypertension; Z20.822 Contact with and (suspected) exposure to COVID-19
CPT/HCPCS: 36415; 71046; 71275; 80053; 83690; 83880; 84439; 84443; 84484; 85025; 85380; 85610; 85730; 87636; 93005; 93970; 96372; 99284; J1650; Q9967

== ENCOUNTER 2022-03-10 07:36 | Outpatient (CLI) | payer MEDICARE, SELFPAY ==
--- NOTE | ~2022-03-10 | US_ITS ---
Abdominal Sonogram: Real-time sonographic imaging of the abdomen was performed. Clinical History: Epigastric pain Findings: The liver appears normal with no evidence of mass lesion or bile duct dilatation. Main por diane vein demonstrates normal direction of flow. The spleen is normal in size without evidence of foca l lesion. The gallbladder is well distended, and appears normal with no evidence of gallstone or wal l thickening. The common bile duct measures 4 mm. The visualized pancreas, aorta, and IVC are unrema rkable. The right kidney measures 10.6 cm in length and the left kidney measures 10.8 cm. There is no hydronephrosis or renal calculus. Impression: Unremarkable abdominal ultrasound. Reviewed, dictated and finalized at location . S AND MERCHANDISING REPRESENTATIVE Impression: Unremarkable abdominal ultrasound.
== END 2022-03-10 07:37 | disposition home or self-care (01) ==
PROVIDERS: PCP Internal Medicine; Visit Provider Internal Medicine Gastroenterology
DX: R10.13 Epigastric pain (principal)
CPT/HCPCS: 76700

== ENCOUNTER → 2022-03-16 13:46 | Outpatient (CLI) | payer MEDICARE, SELFPAY ==
--- NOTE | ~2022-03-16 | MM_ITS ---
EXAMINATION: MM screening conchita BI w melissa HISTORY: Screening mammogram TECHNIQUE: Craniocaudal and mediolateral oblique 3-D tomosynthesis images were obtained and synthetic 2-D images were generated. CAD analysis was submitted and interpreted. COMPARISON: 01/20/2021, 01/01/2020, 12/27/2017 bilateral screening mammogram examinations BREAST PARENCHYMAL COMPOSITION: There are scattered areas of fibroglandular density. FINDINGS: There is no evidence of suspicious mass, calcification, or architectural distortion to sugg est malignancy in either breast. There has been no suspicious interval change. IMPRESSION: 1. No mammographic evidence of malignancy. 2. Recommend routine screening mammography in one year. BI-RADS Category 1: Negative Reviewed, dictated and finalized at location A. T CUTTER
== END ==
PROVIDERS: PCP Internal Medicine; Visit Provider Internal Medicine
DX: Z12.31 Encounter for screening mammogram for malignant neoplasm of breast (principal)
CPT/HCPCS: 77063; 77067

== ENCOUNTER → 2022-06-01 11:17 | Outpatient (CLI) | payer MEDICARE, SELFPAY ==
--- NOTE | ~2022-06-01 | CT_ITS ---
EXAMINATION: CT abdomen pelvis wo con DATE: 06/01/2022 11:56 INDICATION: Right-sided abdominal pain, guarding. Constipation. TECHNIQUE: Computed tomography (CT) of the abdomen and pelvis was performed without intravenous contr ast. Automated exposure control and iterative reconstruction technique were employed. Exam dose: 560 .09 mGy-cm total exam DLP. COMPARISON: 03/10/2022 complete abdominal ultrasound examination 09/24/2021 CT abdomen pelvis FINDINGS: Chronic mild discoid scarring at the lung bases, most prominent in the dependent right lowe r lobe. Heart size is normal. No pericardial or pleural effusion. The liver, gallbladder, bile ducts, spleen, pancreas, pancreatic duct, and adrenal glands are unremar kable. There are 2 pinpoint nonobstructing left renal calculi. There is suggestion of one very subtle pinpoi nt nonobstructing right renal calculus. No ureteral calculus or hydroureteronephrosis. No renal space occupying mass lesion is evident. The urinary bladder, uterus and adnexal areas are unremarkable. There is atherosclerotic calcification of the abdominal aorta, without aneurysm. There is prominent c alcification at the origins of both renal arteries. No intraperitoneal or retroperitoneal or pelvic mass lesion or adenopathy or ascites. Normal appendix. There is a suture line at the rectum. There are numerous diverticula of left and rig ht colon; no CT evidence of diverticulitis. No bowel obstruction, bowel wall thickening, pneumatosis or intraperitoneal free air. Bilateral L5 pars interarticularis defects with grade 2 anterolisthesis at L5-S1. There is multilevel degenerative disc disease, moderately severe L1-2 and L2-3, with mild retrolisthe sis at these 2 levels. There is severe degenerative disc disease at L5-S1. IMPRESSION: Minimal bilateral nephrolithiasis; no ureteral calculus or hydroureteronephrosis Normal appendix Diverticulosis of left and right colon; no CT evidence of diverticulitis Normal appendix Suture line in the rectum No bowel obstruction or free air Bilateral L5 pars interarticularis defects with grade 2 anterolisthesis at L5-S1 Multilevel degenerative disc disease, most severe at L5-S1 Reviewed, dictated and finalized at Location A. Reviewed, dictated and finalized at location L. IMPRESSION: Minimal bilateral nephrolithiasis; no ureteral calculus or hydrour eteronephrosis Normal appendix Diverticulosis of left and right colon; no CT evidence of diverticulitis Normal appendix Suture line in the rectum No bowel obstruction or free air Bilateral L5 pars interarticularis defects with grade 2 anterolisthesis at L5-S 1 Multilevel degenerative disc disease, most severe at L5-S1
== END ==
PROVIDERS: PCP Internal Medicine; Visit Provider Nurse Practitioner
DX: K59.00 Constipation, unspecified (principal); K57.30 Diverticulosis of large intestine without perforation or abscess without bleeding; M51.37 Other intervertebral disc degeneration, lumbosacral region
CPT/HCPCS: 74176

== ENCOUNTER 2022-06-26 15:48 | Emergency (ER) | payer MEDICARE, SELFPAY ==
--- NOTE | ~2022-06-26 | XR_ITS ---
EXAMINATION: XR chest 2V Exam Date/Time: 06/26/2022 16:08 CDT HISTORY: weakness AND LIGHTHEADEDNESS INCREASED B.P. HX OF P.E. Comparison: 02/21/2022; CTPA 02/21/2022. RESULT: Lines, tubes, and devices: None. Lungs and pleura: Clear. Cardiomediastinal silhouette: Stable. Other: No acute osseous or upper abdominal finding. IMPRESSION: No acute cardiopulmonary process. Reviewed, dictated and finalized at location K.
[2022-06-26 15:51] VITALS: BP 172/73; PULSE 85; RESP 18; TEMP 36.6; O2SAT 99
--- NOTE | 2022-06-26 15:55 | ECG_ITS ---
Measurements Intervals [place] Rate: 76 P: 39 IN: 168 QRS: -40 QRSD: 98 T: 70 QT: 416 QTc: 468 Interpretive Statements SINUS RHYTHM MARKED LEFT AXIS DEVIATION [QRS AXIS < -30] MINOR RV CONDUCTION DELAY NONSPECIFIC ST & T-WAVE ABNORMALITY ABNORMAL ECG COMPARED TO ECG 02/21/2022 10:32:55 NO DIFFERENCE Electronically Signed On 06-27-2022 7:44:18 CDT by Ron Velázquez M.D.
[2022-06-26 16:13] LABS: Basophils Percent Auto 0.6 % (0.2-1.2); Eosinophils Absolute Auto 0.1 K/mm3 (0-0.3); Eosinophils Percent Auto 1.9 % (0-4.4); Hematocrit 45.7 % (37.0-47.0); Hemoglobin 14.3 g/dL (12.0-15.0); Immature Granulocyte Absolute 0.01 K/mm3 (0.00-0.031); Immature Granulocyte Percent A 0.2 % (0-0.5); Lymphocytes Absolute Auto 1.83 K/mm3 (0.9-3.2); Mean Corpuscular HGB Conc 31.3 g/dl (32-36); Mean Corpuscular Hemoglobin 31.4 pg (26-34); Mean Corpuscular Volume 100.2 fl (80-100); Monocytes Absolute Auto 0.5 K/mm3 (0.1-0.6); Monocytes Percent Auto 7.1 % (2.6-8.5); Neutrophils Absolute Auto 3.9 K/mm3 (1.3-6.7); Neutrophils Percent Auto 61.2 % (45.5-73.1); Platelet Count Result 247 k/mm3 (150-375); Red Blood Count 4.56 M/mm3 (4.2-5.4); Red Cell Distribution Width 12.3 % (11.5-14.5); White Blood Count 6.3 K/mm3 (4.5-10.0)
[2022-06-26 16:42] LABS: Alanine Aminotransferase 22 U/L (6-35); Albumin Level 4.4 g/dL (3.5-5.1); Alkaline Phosphatase 92 U/L (38-126); Anion Gap 5 mmol/L (8-16); Aspartate Amino Transferase 30 U/L (14-36); Bilirubin,Total 0.4 mg/dL (0.2-1.3); Blood Urea Nitrogen 22 mg/dL (7-17); Calcium 9.2 mg/dL (8.4-10.2); Carbon Dioxide 29 mmol/L (22-30); Chloride 104 mmol/L (98-107); Estimated CRCL calculation 49 ml/min; Estimated Glomerular Filt Rate > 60; Glucose 163 mg/dL (65-110); Potassium 4.1 mmol/L (3.4-5.0); Sodium 138 mmol/L (137-145)
[2022-06-26 20:07] VITALS: BP 156/92; PULSE 63; RESP 12; O2SAT 99
[2022-06-26 20:12] VITALS: PULSE 63
--- NOTE | 2022-06-26 20:22 | ED.WEAKNESS ---
HPI - Weakness General Chief complaint: Weakness Stated complaint: PALPATATIONS Time Seen by Provider: 06/26/22 20:22 History of Present Illness HPI Narrative: Patient is an 81-year-old female here for evaluation of lightheadedness over the past month. Patient states that throughout the day she will have a sensation of lightheadedness that lasts for several seconds before resolving without intervention. Not seems to be related to positions. Today, her symptoms worsened. patient states her symptoms came on after she ate a macadamia nut cookie at lunch. She also had 2 cups of coffee which is abnormal for her, states that she usually has 1 cup. She denies any chest pain, nausea, vomiting, shortness of breath, fevers or chills. She takes Eliquis for PE diagnosed in February. There is no blood in her stools, bleeding elsewhere. Related Data Home Medications Medication Instructions Recorded Confirmed amlodipine 5 mg tablet 5 mg PO DAILY 05/10/19 06/02/22 calcium carbonate 500 mg-vitamin 1 tablet PO DAILY 05/10/19 06/02/22 D3 5 mcg (200 unit) tablet (Os-[place]ich[place] 500 + D3) cholecalciferol (vitamin D3) 25 1,000 unit PO DAILY 05/10/19 06/02/22 mcg (1,000 unit) capsule Allergies Allergy/AdvReac Type Severity Reaction Status Date / Time alendronate sodium Allergy Unknown Anaphylaxis Verified 06/26/22 20:04 erythromycin base Allergy Unknown GI upset Verified 06/26/22 20:04 metronidazole Allergy Unknown pass out Verified 06/26/22 20:04 Review of Systems Review of Systems: Gen: Reports lightheadedness. Denies fevers or chills Eyes: Denies eye pain or visual change ENT: Denies congestion Respiratory: Denies shortness of breath or cough CV: Denies chest pain or palpitations GI: Denies abdominal pain nausea, emesis or diarrhea : denies burning, urgency, frequency or hematuria Musculoskeletal: Denies back pain or muscle pain Neuro: Denies numbness, tingling, weakness or focal weakness Skin: Denies rash Except as documented, all other systems reviewed and negative [facility] Past Medical History Medical History Chicken pox GERD (gastroesophageal reflux disease) Hemorrhoids Removed 09/2014 History of measles, mumps, or rubella History of vaginal delivery Hypertension Hypothyroidism IBS (irritable bowel syndrome) Lumbar back pain Mononucleosis Myocardial infarction Osteopenia Post-menopausal Vitamin deficiency Surgical History Surgical History H/O tubal ligation 1982 History of hemorrhoidectomy Family History Family History Mother Family history of dementia Father Family history of diabetes mellitus in first degree relative Acute myocardial infarction Dementia Sibling H/O aortic valve replacement Other Diabetes mellitus Family history of arthritis Hypertension Social History Social History Smoking status: Never smoker Tobacco type: cigarettes Second hand tobacco smoke exposure: Yes Additional smoking assessment comments: Was exposed to second hand ciggerette smoke for 55years- father and Alcohol intake: never Drinks per week: 2 Substance use: never Substance use type: does not use Lack of Transportation: No Lack of Food: Never True Current Housing: I Have Housing Concerned About Future Housing: No Difficulty Paying Gas/Electric Bills: No Difficulty Paying for Meds: No Currently Unemployed: No Education: High School Diploma/GED Difficulty w/ Childcare or Family Care: No Living arrangements: with family Additional living arrangements comments: Lives with . Occupation/Education: retired Gender identity (if verbalized by the patient): Female Sexual Orientation (if Verbalized by the Patient): Straight or Heterosexual S
[2022-06-26 20:50] LABS: Troponin I < 0.012 ng/mL (0.000-0.034)
[2022-06-26] MEDS: SODIUM CHLORIDE 0.9% IV 1,000 ML 999 ML IV CONT (20:55)
[2022-06-26] MEDS: APIXABAN 5 MG TABLET PO (20:59)
[2022-06-26] MEDS: amLODIPine BESYLATE 5 MG TABLET PO (20:59)
[2022-06-26 21:01] VITALS: BP 154/74; PULSE 82; RESP 16
[2022-06-26 22:26] VITALS: BP 160/78; PULSE 74; RESP 14; O2SAT 98
== END 2022-06-26 22:32 | disposition home or self-care (01) ==
PROVIDERS: Emergency Medicine; Emergency Provider Physician Assistant; PCP Internal Medicine
DX: R42 Dizziness and giddiness (principal); I10 Essential (primary) hypertension; I25.2 Old myocardial infarction; E03.9 Hypothyroidism, unspecified; K58.9 Irritable bowel syndrome, unspecified; K21.9 Gastro-esophageal reflux disease without esophagitis; M85.80 Other specified disorders of bone density and structure, unspecified site; Z77.22 Contact with and (suspected) exposure to environmental tobacco smoke (acute) (chronic); Z79.01 Long term (current) use of anticoagulants
CPT/HCPCS: 36415; 71046; 80053; 84484; 85025; 93005; 96360; 99283; A9270; J7030

== ENCOUNTER → 2022-08-23 10:50 | Outpatient (CLI) | payer MEDICARE, SELFPAY ==
--- NOTE | ~2022-08-23 | DEXA_ITS ---
Bone Density Report Name: JONATHAN EPPS Age: 81 Sex: Female Ethnicity: White Date of : 1940 Indication: osteopenia; parental hip fracture; height loss; rheumatoid arthritis; postmenopausal Referring Provider: Stephanie Gonzalez Study: Bone densitometry was performed. Exam Date: August 23, 2022 Accession number: [id number] Bone Density: Region BMD T-score Z-score Classification AP Spine (L1-L4) 0.999 -0.4 2.3 Normal Femoral Neck (Left) 0.641 -1.9 0.5 Osteopenia Total Hip (Left) 0.761 -1.5 0.7 Osteopenia Femoral Neck (Right) 0.648 -1.8 0.6 Osteopenia Total Hip (Right) 0.816 -1.0 1.1 Normal Total Hip Mean 0.789 -1.3 0.9 Osteopenia World Health Organization criteria for BMD impression classify patients as: Normal (T-score at or above -1.0), Osteopenia (T-score between -1.0 and -2.5), or Osteoporosis (T-score at or below -2.5). 10-year Fracture Risk(1): Major Osteoporotic Fracture 34% Hip Fracture 23% Reported Risk Factors: [place] (), Neck BMD=0.641, BMI=23.4, parental fracture, rheumatoid arthritis (1) FRAX(R) Version 3.08. Fracture probability calculated for an untreated patient. Fracture probability may be lower if the patient has received treatment. Previous Exams: Region Exam Age BMD T-score BMD Change BMD Change Date g/cm2 vs Baseline vs Previous AP Spine(L1-L4) 08/23/2022 81 0.999 -0.4 0.108* 0.016 07/22/2020 79 0.983 -0.6 0.092* 0.083* 06/30/2016 75 0.900 -1.3 0.009 -0.038* 05/28/2014 73 0.938 -1.0 0.047* 0.055* 04/14/2012 71 0.883 -1.5 -0.008 -0.023 08/11/2009 68 0.906 -1.3 0.015 0.019 06/16/2007 66 0.887 -1.5 -0.004 0.017 07/19/2006 65 0.870 -1.6 -0.021 -0.021 07/30/2005 64 0.891 -1.4 Total Hip(Left) 08/23/2022 81 0.761 -1.5 -0.032* 0.000 07/22/2020 79 0.761 -1.5 -0.032* -0.008 07/04/2018 77 0.769 -1.4 -0.025 -0.047* 06/30/2016 75 0.816 -1.0 0.023 0.003 05/28/2014 73 0.813 -1.1 0.020 0.002 04/14/2012 71 0.811 -1.1 0.018 -0.010 08/11/2009 68 0.821 -1.0 0.028* 0.013 06/16/2007 66 0.808 -1.1 0.015 0.021 07/19/2006 65 0.787 -1.3 -0.006 -0.006 07/30/2005 64 0.793 -1.2 Total Hip(Right) 08/23/2022 81 0.816 -1.0 -0.042* 0.002 07/22/2020 79 0.814 -1.0 -0.044* 0.003 07/04/2018
== END ==
PROVIDERS: PCP Clinical Nurse Specialist; Visit Provider Clinical Nurse Specialist
DX: Z78.0 Asymptomatic menopausal state (principal); M85.852 Other specified disorders of bone density and structure, left thigh; M85.851 Other specified disorders of bone density and structure, right thigh
CPT/HCPCS: 77080

== ENCOUNTER → 2022-09-17 08:59 | Outpatient (CLI) | payer MEDICARE, SELFPAY ==
--- NOTE | ~2022-09-17 | MR_ITS ---
MRI of the lumbar spine Clinical History: Degenerative disc disease Technique: Axial T2-weighted images, and sagittal T1-weighted, T2-weighted, and T2 fat-sat images wer e acquired. Findings: There are probable bilateral L5 pars interarticularis defects, with associated 10 mm jai listhesis of L5 over S1. No acute fracture evident. No suspicious bone marrow signal abnormality seen . There is 3 mm retrolisthesis of L1 over L2. At L1-L2, there is minimal disc bulge with mild facet arthropathy. No central canal stenosis or left neural foraminal narrowing. Right neural foraminal is moderately narrowed. At L2-L3, there is moderate facet arthropathy with no significant disc bulge or herniation. No centra l canal stenosis or neural foraminal narrowing. At L3-L4, there is mild disc bulge with mild facet arthropathy. No central canal stenosis or neural f oraminal narrowing. At L4-L5, there is small central disc protrusion with mild facet arthropathy. No central canal stenos is or neural foraminal narrowing. At L5-S1, there is moderate degenerative disc narrowing with diffuse disc bulge and mild facet arthro tosin. No central canal stenosis. There is advanced bilateral neural foraminal narrowing. Paravertebral soft tissues are unremarkable. Impression: Probable bilateral L5 pars interarticularis defects, with associated 10 mm anterolisthesis of L5 over S1. Associated severe bilateral neural foraminal narrowing at this level. Additional mild degenerative changes, as above. Reviewed, dictated and finalized at [facility]. Impression: Probable bilateral L5 pars interarticularis defects, with associated 10 mm ante rolisthesis of L5 over S1. Associated severe bilateral neural foraminal narrowi ng at this level. Additional mild degenerative changes, as above.
== END ==
PROVIDERS: PCP Internal Medicine; Visit Provider Clinical Nurse Specialist
DX: M51.37 Other intervertebral disc degeneration, lumbosacral region (principal)
CPT/HCPCS: 72148

== ENCOUNTER 2022-12-24 08:13 | Emergency (ER) | payer MEDICARE, SELFPAY ==
[2022-12-24] VITALS (14 sets, daily range): BP systolic 157–196; BP diastolic 68–92; PULSE 69; RESP 16; TEMP 36.5; O2SAT 95–100
--- NOTE | ~2022-12-24 | CT_ITS ---
Clinical Indication: Shortness of breath CT Scan of the Chest with Contrast: Technique: Contiguous sections were acquired throughout the chest after intravenous administration of 100 cc of Omnipaque 350. Dose reduction technique was used on this scan by utilizing automated expos ure control and iterative reconstruction technique. The dose-length product (DLP) was 204.85 mGy-cm. COMPARISON: 02/21/2022 Findings: There is no evidence of any significant mediastinal, hilar or axillary lymphadenopathy. There is no f illing defect in the pulmonary arterial tree to suggest pulmonary embolus. There is no evidence of ao rtic dissection or aneurysm. There is no evidence of pleural or pericardial effusion. The lungs are clear. No pulmonary nodules or infiltrates are noted. Images through the upper abdomen reveal no abnormalities. Impression: No evidence of pulmonary embolus, aortic dissection, or aortic aneurysm. Clear lungs. Reviewed, dictated and finalized at [facility]. Impression: No evidence of pulmonary embolus, aortic dissection, or aortic aneurysm. Clear lungs.
--- NOTE | 2022-12-24 08:16 | ECG_ITS ---
Measurements Intervals [place] Rate: 65 P: 40 [place]: 193 QRS: -29 QRSD: 91 T: 61 QT: 420 QTc: 439 Interpretive Statements SINUS RHYTHM BORDERLINE LEFT AXIS DEVIATION [QRS AXIS < -20] INCOMPLETE RIGHT BUNDLE BRANCH BLOCK [90+ ms QRS DURATION, TERMINAL R IN V1/V2, 40+ ms S IN I/aVL/V4/V5/V6] COMPARED TO ECG 06/26/2022 16:01:38 INCOMPLETE RIGHT BUNDLE-BRANCH BLOCK NOW PRESENT Electronically Signed On 12-24-2022 13:34:29 CDT by Juan Vickers MD
[2022-12-24 09:48] LABS: Basophils Absolute Auto 0.1 K/mm3 (0.0-0.1); Eosinophils Absolute Auto 0.1 K/mm3 (0-0.3); Eosinophils Percent Auto 2.7 % (0-4.4); Hematocrit 44.8 % (37.0-47.0); Hemoglobin 13.9 g/dL (12.0-15.0); Immature Granulocyte Absolute 0.02 K/mm3 (0.00-0.031); Immature Granulocyte Percent A 0.4 % (0-0.5); Lymphocytes Absolute Auto 1.45 K/mm3 (0.9-3.2); Mean Corpuscular Hemoglobin 31.2 pg (26-34); Mean Corpuscular Volume 100.4 fl (80-100); Mean Platelet Volume 9.3 fl (7.4-10.4); Monocytes Absolute Auto 0.5 K/mm3 (0.1-0.6); Monocytes Percent Auto 9.1 % (2.6-8.5); Neutrophils Percent Auto 58.8 % (45.5-73.1); Platelet Count Result 200 k/mm3 (150-375); Red Blood Count 4.46 M/mm3 (4.2-5.4); Red Cell Distribution Width 12.2 % (11.5-14.5); White Blood Count 5.2 K/mm3 (4.5-10.0)
--- NOTE | 2022-12-24 09:51 | ED.GENADULT ---
HPI - General Adult General Chief complaint: Arrhythmia/Palpitations Stated complaint: irregular heartrate Time Seen by Provider: 12/24/22 08:54 History of Present Illness HPI narrative: Radha Elena is an 82 y/o female who presents with PMHx of ND in 2002 - which she was told she didn't have an actual blockage just a spasming vessel/ hx of htn and was recently taken off her amlodpine / PE which she was taken off of her Eliquis 4 months ago. Today she presents with what she describes as similar symptoms that she had back in Feb (10 months ago) when she had a pulmonary embolism. She states that she has had intermittent tachycardia and shortness of breath with exertion for about 1 month that she notices with ambulating or while brushing her teeth. Denies chest pain/ currently while at rest denies having any symptoms. No lower extremity swelling/ redness / pain Related Data Home Medications Medication Instructions Recorded Confirmed calcium carbonate 500 mg-vitamin 1 tablet PO DAILY 05/10/19 10/04/22 D3 5 mcg (200 unit) tablet (Os-Jericho 500 + D3) cholecalciferol (vitamin D3) 25 1,000 unit PO DAILY 05/10/19 10/04/22 mcg (1,000 unit) capsule Allergies Allergy/AdvReac Type Severity Reaction Status Date / Time alendronate sodium Allergy Unknown Anaphylaxis Verified 12/24/22 09:03 erythromycin base Allergy Unknown GI upset Verified 12/24/22 09:03 metronidazole Allergy Unknown pass out Verified 12/24/22 09:03 Review of Systems Review of Systems: CONSTITUTIONAL: Denies fever, chills, or sweats. EYES: Denies visual changes, redness, or discharge. ENT: Denies rhinorrhea, congestion, sore throat, or otalgia. CARDIOVASCULAR: Denies chest pain, Reports she has had felt tachycardia with exertion for about 1 month RESPIRATORY: Reports having shortness of breath with exertion off and on for about 1 month GASTROINTESTINAL: Denies abdominal pain, nausea, vomiting, or diarrhea. GENITOURINARY: Denies dysuria or hematuria. SKIN: Denies rash or itching. MUSCULOSKELETAL: Denies back pain, joint pain, or myalgia. NEUROLOGIC: Denies headache, numbness, dizziness, or weakness. PSYCHIATRIC: Denies anxiety or depression. [facility] Past Medical History Medical History Abdominal guarding Abscess Bilateral hand pain Blood in stool, mateus Chicken pox Chronic anticoagulation Constipation Contact dermatitis COVID-19 Finger pain, left GERD (gastroesophageal reflux disease) Hematuria Hemorrhoids Removed 09/2014 History of measles, mumps, or rubella History of vaginal delivery Hx of renal calculi Hypertension Hypothyroidism IBS (irritable bowel syndrome) Indigestion Lightheaded Lumbar back pain Mononucleosis Myocardial infarction Osteopenia Osteopenia 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 Positive ALEX (antinuclear antibody) Post-menopausal Renal insufficiency, mild Right shoulder pain RLQ abdominal pain Sore throat Takotsubo cardiomyopathy Tendinitis of right rotator cuff Vertigo Vitamin deficiency Surgical History Surgical History H/O tubal ligation 1982 History of hemorrhoidectomy Family History Family History Mother Family history of dementia Father Family history of diabetes mellitus in first degree relative Acute myocardial infarction Dementia Sibling H/O aortic valve replacement Other Diabetes mellitus Family history of arthritis Hypertension Social History Social History Smoking status: Never smoker Tobacco type: cigarettes Second hand tobacco smoke exposure: Yes Additional smoking assessment comments: Was exposed to second hand ciggerette smoke for 55years- father and Alcohol intake: never Drinks per week: 2 Substance use: never Substance use type: does not use Lack of Transportation:
[2022-12-24 09:56] LABS: Alanine Aminotransferase 17 U/L (6-35); Alkaline Phosphatase 72 U/L (38-126); Anion Gap 3 mmol/L (8-16); Aspartate Amino Transferase 27 U/L (14-36); Bilirubin,Total 0.5 mg/dL (0.2-1.3); Blood Urea Nitrogen 22 mg/dL (7-17); Calcium 9.2 mg/dL (8.4-10.2); Carbon Dioxide 32 mmol/L (22-30); Chloride 104 mmol/L (98-107); Estimated CRCL calculation 42 ml/min; Estimated Glomerular Filt Rate > 60; Glucose 82 mg/dL (65-110); Potassium 4.3 mmol/L (3.4-5.0); Sodium 139 mmol/L (137-145)
[2022-12-24 09:56] LABS: Appearance Urine Clear (Clear); Bacteria Urine None Seen /hpf; Bilirubin Urine Negative (Negative); Blood Urine Trace (Negative); Color Urine Yellow (Yellow); Glucose Urine UA Negative (Negative); Ketones Urine Negative (Negative); Leukocyte Esterase Ur 1+ LEU/UL (Negative); Need Manual Microscopic Reviewed; Nitrate Urine Negative (Negative); Non Pathogenic Casts 0-2; Protein Urine Negative (Negative); RBC Urine 0-2 /hpf (0-2); Specific Grav Ur 1.006 (1.001-1.035); Squamous Epithelial Cell Urine None seen /hpf (Few); Urobilinogen Urine 0.2 mg/dL (<2.0); WBC Urine 0-5 /hpf; pH Urine 6.5 (5.0-9.0)
[2022-12-24 09:57] LABS: Magnesium 2.1 mg/dL (1.6-2.3)
[2022-12-24 09:59] LABS: Add Urine Microscopic? YES
[2022-12-24 10:08] LABS: NT Pro B Type Natriuretic Pept 220 pg/mL (19.9-100); Troponin I < 0.012 ng/mL (0.000-0.034)
--- NOTE | 2022-12-24 13:15 | PC.NURSE ---
This RN walked the pt with the pulse ox. Pt before walking was 96% on room air and heart rate was 78. After walking around the ED nurses station the pt mentioned slight shortness of breath but remained 97% on rRA and a HR of 80.
== END 2022-12-24 14:11 | disposition home or self-care (01) ==
PROVIDERS: Emergency Provider Nurse Practitioner Family; PCP Internal Medicine
DX: R00.2 Palpitations (principal); I10 Essential (primary) hypertension; I25.2 Old myocardial infarction; E03.9 Hypothyroidism, unspecified; K21.9 Gastro-esophageal reflux disease without esophagitis; I51.81 Takotsubo syndrome
CPT/HCPCS: 36415; 71275; 80053; 81001; 83735; 83880; 84484; 85025; 93005; 99284; Q9967

== ENCOUNTER 2023-02-19 08:14 | Emergency (ER) | payer MEDICARE, SELFPAY ==
--- NOTE | 2023-02-19 08:16 | ED.URI ---
HPI - URI/Sore Throat General Chief Complaint: Upper Respiratory Infection Stated Complaint: Sore Throat Time Seen by Provider: 02/19/23 08:48 Source: patient, RN notes reviewed and old records reviewed Mode of arrival: ambulatory Limitations: no limitations History of Present Illness HPI Narrative: 82-year-old female presents to the [facility] with complaints of a sore throat that started Tuesday. Reports doing 2 at home COVID test on and Tuesday which she reports is negative. Patient's only complaint is a sore throat, worse at night. Did not have a sore throat yesterday. Denies any fevers, sinus congestion, sinus pain, ear pain. Denies any chest pain or difficulty breathing Onset (ago): day(s) (3) Treatments prior to arrival: none Related Data Home Medications Medication Instructions Recorded Confirmed calcium carbonate 500 mg-vitamin 1 tablet PO DAILY 05/10/19 02/19/23 D3 5 mcg (200 unit) tablet (Os-Jericho 500 + D3) cholecalciferol (vitamin D3) 25 1,000 unit PO DAILY 05/10/19 02/19/23 mcg (1,000 unit) capsule Allergies Allergy/AdvReac Type Severity Reaction Status Date / Time alendronate sodium Allergy Unknown Anaphylaxis Verified 02/19/23 08:24 erythromycin base Allergy Unknown GI upset Verified 02/19/23 08:24 metronidazole Allergy Unknown pass out Verified 02/19/23 08:24 Review of Systems Review of Systems: All systems reviewed & are unremarkable except as noted in HPI and below Constitutional: Constitutional: Reports no additional constitutional complaints Eyes: Eyes: Reports no additional eye complaints ENT: Reports as per HPI, Denies otalgia, Denies nasal discharge, Denies sinus pain, Denies sinus pressure and Reports sore throat Cardiovascular: Cardiovascular: Reports no additional cardiovascular complaints, Denies chest pain and Denies dyspnea Respiratory: Respiratory: Reports no additional respiratory complaints, Denies chest congestion, Denies cough and Denies dyspnea Gastrointestinal: Gastrointestinal: Reports no additional gastrointestinal complaints, Denies abdominal pain, Denies nausea and Denies vomiting Musculoskeletal: Musculoskeletal: Reports no additional musculoskeletal complaints Integumentary/Breasts: Skin/Breast: Reports system reviewed and no additional complaints, except as docu Neurologic: Reports system reviewed and no additional complaints, except as documented Psychiatric: Psychiatric: Reports no additional psychiatric complaints Allergic/Immunologic: Allergic/Immunologic: Reports no additional allergic/immunologic complaints [facility] Past Medical History Medical History Abdominal guarding Abscess Bilateral hand pain Blood in stool, mateus Chicken pox Chronic anticoagulation Constipation Contact dermatitis COVID-19 Finger pain, left GERD (gastroesophageal reflux disease) Hematuria Hemorrhoids Removed 09/2014 History of measles, mumps, or rubella History of vaginal delivery Hx of renal calculi Hypertension Hypothyroidism IBS (irritable bowel syndrome) Indigestion Lightheaded Lumbar back pain Mononucleosis Myocardial infarction Osteopenia Osteopenia 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 Positive ALEX (antinuclear antibody) Post-menopausal Renal insufficiency, mild Right shoulder pain RLQ abdominal pain Sore throat Takotsubo cardiomyopathy Tendinitis of right rotator cuff Vertigo Vitamin deficiency Surgical History Surgical History H/O tubal ligation 1982 History of hemorrhoidectomy Family History Family History Mother Family history of dementia Father Family history of diabetes mellitus in first degree relative Acute myocardial infarction Dementia Sibling H/O aortic valve replacement Other Diabetes mellitus Family history of arthritis Hypertension Social History Social History (
[2023-02-19 08:35] VITALS: BP 150/72; PULSE 79; RESP 16; TEMP 36.2; O2SAT 97
== END 2023-02-19 09:13 | disposition home or self-care (01) ==
PROVIDERS: Emergency Provider Nurse Practitioner; PCP Internal Medicine
DX: R09.82 Postnasal drip (principal); J06.9 Acute upper respiratory infection, unspecified; K21.9 Gastro-esophageal reflux disease without esophagitis; I10 Essential (primary) hypertension; E03.9 Hypothyroidism, unspecified; I25.2 Old myocardial infarction; M85.80 Other specified disorders of bone density and structure, unspecified site; Z86.16 Personal history of COVID-19; Z79.01 Long term (current) use of anticoagulants
CPT/HCPCS: 87081; 87880; 99213; G0463

== ENCOUNTER 2023-03-20 13:26 | Emergency (ER) | payer MEDICARE, SELFPAY ==
--- NOTE | ~2023-03-20 | XR_ITS ---
EXAMINATION: XR chest 2V DATE: 03/20/2023 13:44 INDICATION: Cough TECHNIQUE: Frontal and lateral views of the chest are obtained COMPARISON: 06/26/2022 FINDINGS: The lungs are free of acute opacities. No pleural effusion or pneumothorax. The cardiomedia stinal silhouette is normal. There is moderate thoracic spondylosis. IMPRESSION: 1. No acute cardiopulmonary abnormality. Reviewed, dictated and finalized at location [facility] [employer] [facility]
[2023-03-20 13:36] VITALS: BP 123/72; PULSE 82; RESP 16; TEMP 37.1; O2SAT 95
--- NOTE | 2023-03-20 13:55 | ED.URI ---
HPI - URI/Sore Throat General Chief Complaint: Upper Respiratory Infection Stated Complaint: Sinus Infection, Chest Discomfort, Fever Time Seen by Provider: 03/20/23 13:38 Source: patient, RN notes reviewed and old records reviewed Mode of arrival: ambulatory Limitations: no limitations History of Present Illness HPI Narrative: Patient presents today complaining of a 10-12 day history of dry cough, nasal congestion. Denies shortness of breath. Last night she developed pain in her left upper chest that has improved some with Tylenol. This afternoon she developed a fever up to 101. She has been taking Zyrtec, Benadryl. She has also tried Coricidin HBP and Emergen-C. She was seen by her PCP 4 days ago and was told she had postnasal drainage and URI. States her symptoms had improved 2 days ago, but then worsened again. Related Data Home Medications Medication Instructions Recorded Confirmed calcium carbonate 500 mg-vitamin 1 tablet PO DAILY 05/10/19 03/20/23 D3 5 mcg (200 unit) tablet (Os-Jericho 500 + D3) cholecalciferol (vitamin D3) 25 1,000 unit PO DAILY 05/10/19 03/20/23 mcg (1,000 unit) capsule Allergies Allergy/AdvReac Type Severity Reaction Status Date / Time alendronate sodium Allergy Unknown Anaphylaxis Verified 03/20/23 13:35 erythromycin base Allergy Unknown GI upset Verified 03/20/23 13:35 metronidazole Allergy Unknown pass out Verified 03/20/23 13:35 Review of Systems Review of Systems: CONSTITUTIONAL: Denies body aches, chills, or sweats.+ fever EYES: Denies visual changes, redness, or discharge. ENT: Denies rhinorrhea, sore throat, or otalgia.+ congestion CARDIOVASCULAR: Denies chest pain, palpitations, or edema. RESPIRATORY: Denies dyspnea.+ cough, chest wall pain GASTROINTESTINAL: Denies abdominal pain, nausea, vomiting, or diarrhea. GENITOURINARY: Denies dysuria or hematuria. SKIN: Denies rash, itching, or wounds. MUSCULOSKELETAL: Denies back pain, joint pain, or myalgia. NEUROLOGIC: Denies headache, numbness, tingling, or weakness. PSYCH: Denies depression or anxiety. [facility] Past Medical History Medical History Abdominal guarding Abscess Bilateral hand pain Blood in stool, mateus Chicken pox Chronic anticoagulation Constipation Contact dermatitis COVID-19 Finger pain, left GERD (gastroesophageal reflux disease) Hematuria Hemorrhoids Removed 09/2014 History of measles, mumps, or rubella History of vaginal delivery Hx of renal calculi Hypertension Hypothyroidism IBS (irritable bowel syndrome) Indigestion Lightheaded Lumbar back pain Mononucleosis Myocardial infarction Osteopenia Osteopenia 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 Positive ALEX (antinuclear antibody) Post-menopausal Renal insufficiency, mild Right shoulder pain RLQ abdominal pain Sore throat Takotsubo cardiomyopathy Tendinitis of right rotator cuff Vertigo Vitamin deficiency Surgical History Surgical History H/O tubal ligation 1982 History of hemorrhoidectomy Family History Family History Mother Family history of dementia Father Family history of diabetes mellitus in first degree relative Acute myocardial infarction Dementia Sibling H/O aortic valve replacement Other Diabetes mellitus Family history of arthritis Hypertension Social History Social History Smoking status: Never smoker Tobacco type: cigarettes Second hand tobacco smoke exposure: Yes Additional smoking assessment comments: Was exposed to second hand ciggerette smoke for 55years- father and Alcohol intake: never Drinks per week: 2 Substance use: never Substance use type: does not use Lack of Transportation: No Lack of Food: Never True Current Housing: [facility]
== END 2023-03-20 14:11 | disposition home or self-care (01) ==
PROVIDERS: Emergency Provider Nurse Practitioner; PCP Internal Medicine
DX: J40 Bronchitis, not specified as acute or chronic (principal); J01.90 Acute sinusitis, unspecified; K21.9 Gastro-esophageal reflux disease without esophagitis; I10 Essential (primary) hypertension; E03.9 Hypothyroidism, unspecified; I25.2 Old myocardial infarction; Z86.16 Personal history of COVID-19
CPT/HCPCS: 71046; 99213; G0463

== ENCOUNTER 2023-05-10 10:21 | Emergency (ER) | payer MEDICARE, SELFPAY ==
--- NOTE | 2023-05-10 10:28 | ED.FEMALEGU ---
HPI - Female Genitourinary General Chief complaint: Urogenital-Female Stated complaint: Uti symptoms Source: patient and RN notes reviewed Mode of arrival: ambulatory Limitations: no limitations History of Present Illness HPI Narrative: Patient is an 82-year-old female who presents to the [facility] with complaints of dysuria, urinary frequency, and urinary urgency starting this morning. She denies known hematuria. Denies known fevers. Patient also denies flank pain, abdominal pain, nausea, vomiting. Patient reports history of frequent UTIs. States that her symptoms are similar to the she has experienced in the past with her UTIs. Related Data Home Medications Medication Instructions Recorded Confirmed calcium carbonate 500 mg-vitamin 1 tablet PO DAILY 05/10/19 05/10/23 D3 5 mcg (200 unit) tablet (Os-Jericho 500 + D3) cholecalciferol (vitamin D3) 25 1,000 unit PO DAILY 05/10/19 05/10/23 mcg (1,000 unit) capsule Allergies Allergy/AdvReac Type Severity Reaction Status Date / Time alendronate sodium Allergy Unknown Anaphylaxis Verified 05/10/23 10:25 erythromycin base Allergy Unknown GI upset Verified 05/10/23 10:25 metronidazole Allergy Unknown pass out Verified 05/10/23 10:25 Review of Systems Review of Systems: CONSTITUTIONAL: Denies fever, chills, or sweats. EYES: Denies visual changes, redness, or discharge. ENT: Denies otalgia and sore throat CARDIOVASCULAR: Denies chest pain, palpitations, or edema. RESPIRATORY: Denies cough or dyspnea. GASTROINTESTINAL: Denies abdominal pain, nausea, vomiting, or diarrhea. GENITOURINARY: Reports dysuria but denies hematuria. SKIN: Denies rash or itching. MUSCULOSKELETAL: Denies back pain, joint pain, or myalgia. NEUROLOGIC: Denies headache, numbness, or weakness. Pertinent positives per HPI. [facility] Past Medical History Medical History Abdominal guarding Abscess Bilateral hand pain Blood in stool, mateus Chicken pox Chronic anticoagulation Constipation Contact dermatitis COVID-19 Finger pain, left GERD (gastroesophageal reflux disease) Hematuria Hemorrhoids Removed 09/2014 History of measles, mumps, or rubella History of vaginal delivery Hx of renal calculi Hypertension Hypothyroidism IBS (irritable bowel syndrome) Indigestion Lightheaded Lumbar back pain Mononucleosis Myocardial infarction Osteopenia Osteopenia 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 Positive ALEX (antinuclear antibody) Post-menopausal Renal insufficiency, mild Right shoulder pain RLQ abdominal pain Sore throat Takotsubo cardiomyopathy Tendinitis of right rotator cuff Vertigo Vitamin deficiency Surgical History Surgical History H/O tubal ligation 1982 History of hemorrhoidectomy Family History Family History Mother Family history of dementia Father Family history of diabetes mellitus in first degree relative Acute myocardial infarction Dementia Sibling H/O aortic valve replacement Other Diabetes mellitus Family history of arthritis Hypertension Social History Social History Smoking status: Never smoker Tobacco type: cigarettes Second hand tobacco smoke exposure: Yes Additional smoking assessment comments: Was exposed to second hand ciggerette smoke for 55years- father and Alcohol intake: never Drinks per week: 2 Substance use: never Substance use type: does not use Lack of Transportation: No Lack of Food: Never True Current Housing: I Have Housing Concerned About Future Housing: No Difficulty Paying Gas/Electric Bills: No Difficulty Paying for Meds: No Currently Unemployed: No Education: High School Diploma/GED Difficulty w/ Childcare or Family Care: No Living arrangements: with family Laura gupta
[2023-05-10 10:37] VITALS: BP 148/70; PULSE 64; RESP 16; TEMP 36.6; O2SAT 97
== END 2023-05-10 10:57 | disposition home or self-care (01) ==
PROVIDERS: Emergency Provider Nurse Practitioner; PCP Internal Medicine
DX: N30.01 Acute cystitis with hematuria (principal); B96.20 Unspecified Escherichia coli [E. coli] as the cause of diseases classified elsewhere; K21.9 Gastro-esophageal reflux disease without esophagitis; I10 Essential (primary) hypertension; E03.9 Hypothyroidism, unspecified; I25.2 Old myocardial infarction; M85.80 Other specified disorders of bone density and structure, unspecified site; Z86.16 Personal history of COVID-19
CPT/HCPCS: 81003; 87077; 87086; 87186; 99213; G0463

== ENCOUNTER 2023-05-23 08:01 | Outpatient (CLI) | payer MEDICARE, SELFPAY ==
[2023-05-23 13:06] LABS: Cholesterol 189 mg/dL (0-200); HDL Direct 54 mg/dL; Triglycerides 67 mg/dL (<150)
[2023-05-23 13:16] LABS: LDL Cholesterol Direct 108 mg/dL
[2023-05-23 14:59] LABS: Vitamin D 25 Hydroxy 62.7 ng/mL
== END 2023-05-23 08:02 | disposition home or self-care (01) ==
PROVIDERS: PCP Internal Medicine; Visit Provider Nurse Practitioner
DX: E03.9 Hypothyroidism, unspecified (principal); E78.5 Hyperlipidemia, unspecified; E55.9 Vitamin D deficiency, unspecified
CPT/HCPCS: 36415; 80061; 82306; 84443

== ENCOUNTER 2023-07-05 17:24 | Emergency (ER) | payer MEDICARE, SELFPAY ==
--- NOTE | 2023-07-05 17:29 | ED.GENADULT ---
HPI - General Adult General Chief complaint: Upper Respiratory Infection Stated complaint: SORE THROAT Source: patient, RN notes reviewed and old records reviewed Mode of arrival: ambulatory Limitations: no limitations History of Present Illness HPI narrative: 82-year-old female presents to [facility] with complaints sore throat this started yesterday. Patient states now has bilateral ear pressure and generally not feeling well. Patient denies cough, congestion. Related Data Home Medications Medication Instructions Recorded Confirmed calcium carbonate 500 mg-vitamin 1 tablet PO DAILY 05/10/19 07/05/23 D3 5 mcg (200 unit) tablet (Os-Jericho 500 + D3) cholecalciferol (vitamin D3) 25 1,000 unit PO DAILY 05/10/19 07/05/23 mcg (1,000 unit) capsule biotin 1 cap PO DAILY 06/07/23 07/05/23 Allergies Allergy/AdvReac Type Severity Reaction Status Date / Time alendronate sodium Allergy Unknown Anaphylaxis Verified 07/05/23 17:31 erythromycin base Allergy Unknown GI upset Verified 07/05/23 17:31 metronidazole Allergy Unknown pass out Verified 07/05/23 17:31 Review of Systems Constitutional: Constitutional: Reports no additional constitutional complaints, Denies body ache(s), Denies chills, Denies fatigue, Denies fever(s) and Denies headache(s) Eyes: Eyes: Reports no additional eye complaints and Denies blurry vision ENT: Reports system reviewed and no additional complaints, except as documented, Denies vertigo, Denies dizziness, Denies ear discharge, Reports otalgia, Denies facial pain, Denies headache(s), Denies nasal congestion, Denies nasal discharge, Denies sinus pain, Denies sinus pressure and Reports sore throat Cardiovascular: Cardiovascular: Reports no additional cardiovascular complaints, Denies chest pain, Denies chest pain at rest, Denies rapid heart rate and Denies dyspnea Respiratory: Respiratory: Reports no additional respiratory complaints, Denies chest congestion, Denies cough, Denies pain on inspiration, Denies pain with cough and Denies dyspnea Gastrointestinal: Gastrointestinal: Denies abdominal pain, Denies diarrhea, Denies nausea and Denies vomiting Integumentary/Breasts: Skin/Breast: Denies rash Neurologic: Reports system reviewed and no additional complaints, except as documented, Denies vertigo, Denies dizziness and Denies headache(s) Endocrine: Endocrine: Denies fatigue PMFSH Past Medical History Medical History Abdominal guarding Abscess Bilateral hand pain Blood in stool, mateus Chicken pox Chronic anticoagulation Constipation Contact dermatitis COVID-19 Finger pain, left GERD (gastroesophageal reflux disease) Hematuria Hemorrhoids Removed 09/2014 History of measles, mumps, or rubella History of vaginal delivery Hx of renal calculi Hypertension Hypothyroidism IBS (irritable bowel syndrome) Indigestion Lightheaded Lumbar back pain Mononucleosis Myocardial infarction Osteopenia Osteopenia 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 Positive ALEX (antinuclear antibody) Post-menopausal Renal insufficiency, mild Right shoulder pain RLQ abdominal pain Sore throat Takotsubo cardiomyopathy Tendinitis of right rotator cuff Vertigo Vitamin deficiency Surgical History Surgical History H/O tubal ligation 1982 History of hemorrhoidectomy Family History Family History Mother Family history of dementia Father Family history of diabetes mellitus in first degree relative Acute myocardial infarction Dementia Sibling H/O aortic valve replacement Other Diabetes mellitus Family history of arthritis Hypertension Social History Social History Smoking status: Never smoker Tobacco type: cigarettes Second hand tobacco smoke exposure: Yes Additional smoking assessment commen
[2023-07-05 17:39] VITALS: BP 149/75; PULSE 64; RESP 16; TEMP 37.2; O2SAT 97
== END 2023-07-05 17:51 | disposition home or self-care (01) ==
PROVIDERS: Emergency Provider Registered Nurse; PCP Internal Medicine
DX: J03.90 Acute tonsillitis, unspecified (principal); K21.9 Gastro-esophageal reflux disease without esophagitis; I10 Essential (primary) hypertension; E03.9 Hypothyroidism, unspecified; I25.2 Old myocardial infarction; I51.81 Takotsubo syndrome; Z86.16 Personal history of COVID-19
CPT/HCPCS: 87081; 87880; 99213; G0463

== ENCOUNTER 2023-07-19 22:54 | Emergency (ER) | payer MEDICARE, SELFPAY ==
--- NOTE | ~2023-07-19 | XR_ITS ---
Portable chest x-ray Comparison: 03/20/2023 Clinical History: Lightheadedness Findings: Lungs are clear, without focal consolidation or pleural effusion. Cardiomediastinal silho uette is stable. Bones and soft tissues are unremarkable. Impression: Normal chest. Reviewed, dictated and finalized at location . Impression: Normal chest.
[2023-07-19 22:56] VITALS: BP 172/70; PULSE 67; RESP 19; O2SAT 97
--- NOTE | 2023-07-19 23:02 | ECG_ITS ---
SEE SCANNED COPY FOR CONFIRMED REPORT MTDD
[2023-07-19 23:10] VITALS: BP 172/70; PULSE 67; RESP 12; TEMP 37.1; O2SAT 100
--- NOTE | 2023-07-19 23:23 | ED.DIZZY ---
HPI - Dizziness General Chief Complaint: Dizziness Stated Complaint: HIGH B/P, LIGHTHEADEDNESS Time Seen by Provider: 07/19/23 23:15 Source: patient Mode of arrival: ambulatory Limitations: no limitations History of Present Illness HPI Narrative: This is an 82-year-old female who presents to the ED for chief complaint of lightheadedness and elevated blood pressures. Patient reports that she was playing cards with her friends octavia, when she got home she started to feel lightheaded. She reports that she sat down and took her blood pressure noticed it was high in the 180s. She reports that she tried waited out and took her blood pressure several more times after this, and the blood pressure never went down. This caused her concern so she called her [id number] all over and the paramedics. Denies any associated chest pain, shortness of breath, palpitations, headache, fevers, chills. Denies any recent illness. Denies syncope. Reports history of talking to a cardiomyopathy in the early but no other cardiac history since. Related Data Home Medications Medication Instructions Recorded Confirmed calcium carbonate 500 mg-vitamin 1 tablet PO DAILY 05/10/19 07/05/23 D3 5 mcg (200 unit) tablet (Os-Jericho 500 + D3) cholecalciferol (vitamin D3) 25 1,000 unit PO DAILY 05/10/19 07/05/23 mcg (1,000 unit) capsule biotin 1 cap PO DAILY 06/07/23 07/05/23 Allergies Allergy/AdvReac Type Severity Reaction Status Date / Time alendronate sodium Allergy Unknown Anaphylaxis Verified 07/05/23 17:31 erythromycin base Allergy Unknown GI upset Verified 07/05/23 17:31 metronidazole Allergy Unknown pass out Verified 07/05/23 17:31 Review of Systems Review of Systems: All systems as dictated in HPI [facility] Past Medical History Medical History Abdominal guarding Abscess Bilateral hand pain Blood in stool, mateus Chicken pox Chronic anticoagulation Constipation Contact dermatitis COVID-19 Finger pain, left GERD (gastroesophageal reflux disease) Hematuria Hemorrhoids Removed 09/2014 History of measles, mumps, or rubella History of vaginal delivery Hx of renal calculi Hypertension Hypothyroidism IBS (irritable bowel syndrome) Indigestion Lightheaded Lumbar back pain Mononucleosis Myocardial infarction Osteopenia Osteopenia 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 Positive ALEX (antinuclear antibody) Post-menopausal Renal insufficiency, mild Right shoulder pain RLQ abdominal pain Sore throat Takotsubo cardiomyopathy Tendinitis of right rotator cuff Vertigo Vitamin deficiency Surgical History Surgical History H/O tubal ligation 1982 History of hemorrhoidectomy Family History Family History Mother Family history of dementia Father Family history of diabetes mellitus in first degree relative Acute myocardial infarction Dementia Sibling H/O aortic valve replacement Other Diabetes mellitus Family history of arthritis Hypertension Social History Social History Smoking status: Never smoker Tobacco type: cigarettes Second hand tobacco smoke exposure: Yes Additional smoking assessment comments: Was exposed to second hand ciggerette smoke for 55years- father and Alcohol intake: never Drinks per week: 2 Substance use: never Substance use type: does not use Lack of Transportation: No Lack of Food: Never True Current Housing: I Have Housing Concerned About Future Housing: No Difficulty Paying Gas/Electric Bills: No Difficulty Paying for Meds: No Currently Unemployed: No Education: High School Diploma/GED Difficulty w/ Childcare or Family Care: No Living arrangements: with family Additional living arrangements comments: Lives with . Occupation/[employer]
[2023-07-19 23:37] LABS: Basophils Percent Auto 0.6 % (0.2-1.2); Eosinophils Absolute Auto 0.2 K/mm3 (0-0.3); Eosinophils Percent Auto 2.7 % (0-4.4); Hematocrit 42.3 % (37.0-47.0); Hemoglobin 13.5 g/dL (12.0-15.0); Immature Granulocyte Absolute 0.02 K/mm3 (0.00-0.031); Immature Granulocyte Percent A 0.3 % (0-0.5); Lymphocytes Absolute Auto 1.66 K/mm3 (0.9-3.2); Lymphocytes Percent Auto 26.1 % (18.3-44.2); Mean Corpuscular HGB Conc 31.9 g/dl (32-36); Mean Corpuscular Hemoglobin 31.4 pg (26-34); Mean Corpuscular Volume 98.4 fl (80-100); Mean Platelet Volume 9.4 fl (7.4-10.4); Monocytes Absolute Auto 0.6 K/mm3 (0.1-0.6); Monocytes Percent Auto 9.4 % (2.6-8.5); Neutrophils Absolute Auto 3.9 K/mm3 (1.3-6.7); Neutrophils Percent Auto 60.9 % (45.5-73.1); Platelet Count Result 228 k/mm3 (150-375); Red Cell Distribution Width 12.4 % (11.5-14.5); White Blood Count 6.4 K/mm3 (4.5-10.0)
[2023-07-19 23:49] LABS: Alanine Aminotransferase 19 U/L (6-35); Albumin Level 4.2 g/dL (3.5-5.1); Alkaline Phosphatase 97 U/L (38-126); Anion Gap 5 mmol/L (4-12); Aspartate Amino Transferase 30 U/L (14-36); Bilirubin,Total 0.4 mg/dL (0.2-1.3); Blood Urea Nitrogen 26 mg/dL (7-17); Calcium 9.2 mg/dL (8.4-10.2); Carbon Dioxide 29 mmol/L (22-30); Chloride 104 mmol/L (98-107); Estimated CRCL calculation 48 ml/min; Estimated Glomerular Filt Rate > 60; Glucose 138 mg/dL (65-110); Potassium 3.8 mmol/L (3.4-5.0); Sodium 138 mmol/L (137-145)
[2023-07-20] MEDS: SODIUM CHLORIDE 0.9% IV 1,000 ML 999 ML IV CONT (00:12)
[2023-07-20 01:25] VITALS: BP 175/74; PULSE 70; RESP 14; O2SAT 96
== END 2023-07-20 01:25 | disposition home or self-care (01) ==
PROVIDERS: Emergency Medicine; Emergency Provider Physician Assistant; PCP Internal Medicine
DX: R42 Dizziness and giddiness (principal); Z79.01 Long term (current) use of anticoagulants; K21.9 Gastro-esophageal reflux disease without esophagitis; E03.9 Hypothyroidism, unspecified; I10 Essential (primary) hypertension
CPT/HCPCS: 36415; 71045; 80053; 85025; 93005; 96360; 99284; J7030

== ENCOUNTER 2023-09-27 10:53 | Outpatient (CLI) | payer MEDICARE, SELFPAY ==
--- NOTE | ~2023-09-27 | XR_ITS ---
XR hip BI wo pelvis Ordering provider: Paige Guerrier NP History: . M25.559 - Pain in unspecified hip . Comparison: None. FINDINGS: BONES: No acute fracture or dislocation. HIP JOINT SPACES: Normal. SACROILIAC JOINT SPACES/LUMBAR SPINE: The sacroiliac joint spaces are normal. Mild degenerative solis es of the visualized lower lumbar spine. PUBIC SYMPHYSIS: Normal. SOFT TISSUES: Normal. IMPRESSION: No acute osseous abnormality of the bilateral hips and pelvis. Reviewed, dictated and finalized at location A.
== END 2023-09-27 10:54 ==
PROVIDERS: PCP Internal Medicine; Visit Provider Nurse Practitioner
DX: M25.559 Pain in unspecified hip (principal)
CPT/HCPCS: 73521

== ENCOUNTER 2023-10-10 08:03 | Emergency (ER) | payer MEDICARE, SELFPAY ==
--- NOTE | 2023-10-10 08:07 | ED.FEMALEGU ---
HPI - Female Genitourinary General Chief complaint: Urogenital-Female Stated complaint: UTI Time Seen by Provider: 10/10/23 08:18 Source: patient, RN notes reviewed and old records reviewed Mode of arrival: ambulatory Limitations: no limitations History of Present Illness HPI Narrative: 82-year-old female presents to the [facility] with concerns for a kidney stone. Patient reports last night she went to bed and had some left lower quadrant keep cramping. States that she started drinking more water. Has not had frequency, urgency or burning. Also reports that she has had the chills without fever. Patient reports history of kidney stone hot, states that she is not in that much pain. Tenderness to the right lower quadrant without CVA tenderness. Patient denies any frequency, urgency or burning Onset (ago): hour(s) (12) Treatment prior to arrival: none Related Data Home Medications Medication Instructions Recorded Confirmed calcium carbonate 500 mg-vitamin 1 tablet PO DAILY 05/10/19 10/10/23 D3 5 mcg (200 unit) tablet (Os-Jericho 500 + D3) cholecalciferol (vitamin D3) 25 1,000 unit PO DAILY 05/10/19 10/10/23 mcg (1,000 unit) capsule biotin 1 cap PO DAILY 06/07/23 10/10/23 docusate sodium 100 mg capsule 100 mg PO DAILY 09/27/23 10/10/23 (Colace) Allergies Allergy/AdvReac Type Severity Reaction Status Date / Time alendronate sodium Allergy Unknown Anaphylaxis Verified 10/10/23 08:13 erythromycin base Allergy Unknown GI upset Verified 10/10/23 08:13 metronidazole Allergy Unknown pass out Verified 10/10/23 08:13 Review of Systems Review of Systems: All systems reviewed & are unremarkable except as noted in HPI and below Constitutional: Constitutional: Reports no additional constitutional complaints Cardiovascular: Cardiovascular: Reports no additional cardiovascular complaints, Denies chest pain and Denies dyspnea Respiratory: Respiratory: Reports no additional respiratory complaints, Denies chest congestion, Denies cough and Denies dyspnea Gastrointestinal: Gastrointestinal: Reports as per HPI, Denies bloating, Denies change in stool character, Denies constipation, Reports GI cramping (LLQ), Denies diarrhea, Denies nausea and Denies vomiting Genitourinary: Genitourinary: Reports no additional female genitourinary complaints, Denies nocturia, Denies dysuria and Denies pelvic pain Musculoskeletal: Musculoskeletal: Reports no additional musculoskeletal complaints Integumentary/Breasts: Skin/Breast: Reports system reviewed and no additional complaints, except as docu Neurologic: Reports system reviewed and no additional complaints, except as documented Psychiatric: Psychiatric: Reports no additional psychiatric complaints Allergic/Immunologic: Allergic/Immunologic: Reports no additional allergic/immunologic complaints PMFSH Past Medical History Medical History Abdominal guarding Abscess Bilateral hand pain Blood in stool, mateus Chicken pox Chronic anticoagulation Constipation Contact dermatitis COVID-19 Finger pain, left GERD (gastroesophageal reflux disease) Hematuria Hemorrhoids Removed 09/2014 History of measles, mumps, or rubella History of vaginal delivery Hx of renal calculi Hypertension Hypothyroidism IBS (irritable bowel syndrome) Indigestion Lightheaded Lumbar back pain Mononucleosis Myocardial infarction Osteopenia Osteopenia 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 Positive ALEX (antinuclear antibody) Post-menopausal Renal insufficiency, mild Right shoulder pain RLQ abdominal pain Sore throat Takotsubo cardiomyopathy Tendinitis of right rotator cuff Vertigo Vitamin deficiency Surgical History Surgical History H/O tubal ligation 1982 History of hemorrhoidectomy Family History Family History Mother Family history of dementia Father Fa
[2023-10-10 08:12] VITALS: BP 118/75; PULSE 74; RESP 16; TEMP 36.3; O2SAT 99
[2023-10-10 08:38] LABS: EDUAAPPEAR Clear; EDUABILI Negative; EDUABLOOD Trace; EDUACOLOR1 Yellow; EDUAGLUCOSE Negative; EDUAKETONE Negative; EDUALEUKO Trace; EDUANITRATE Negative; EDUAPH 6.5; EDUAPROTEIN Negative; EDUAUROBILI 0.2
== END 2023-10-10 08:33 | disposition home or self-care (01) ==
PROVIDERS: Emergency Provider Nurse Practitioner; PCP Internal Medicine
DX: R10.32 Left lower quadrant pain (principal); K21.9 Gastro-esophageal reflux disease without esophagitis; I10 Essential (primary) hypertension; E03.9 Hypothyroidism, unspecified; I25.2 Old myocardial infarction; M85.80 Other specified disorders of bone density and structure, unspecified site; I51.81 Takotsubo syndrome; Z86.16 Personal history of COVID-19
CPT/HCPCS: 81003; 87086; 99213; G0463

== ENCOUNTER 2023-12-28 11:47 | Outpatient (CLI) | payer MEDICARE, SELFPAY ==
--- NOTE | ~2023-12-28 | XR_ITS ---
[id number] Ordering provider: ZEB Bird History: . no injury posterior to right side neck pain for 2 years . Comparison: August 08, 2015 FINDINGS: VERTEBRAL BODIES: Normal height and alignment. No visible fracture or subluxation. The dens is intact . DISK SPACES: Well maintained. Facet joint disease at multiple levels. 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 PARASPINOUS SOFT TISSUES: No prevertebral soft tissue swelling. IMPRESSION: No acute osseous abnormality cervical spine. Reviewed, dictated and finalized at location A.
== END 2023-12-28 11:48 | disposition home or self-care (01) ==
LOC: GOSHIMG 11:48
PROVIDERS: PCP Internal Medicine; Visit Provider Clinical Nurse Specialist
DX: M54.2 Cervicalgia (principal)
CPT/HCPCS: 72040

== ENCOUNTER 2024-02-21 15:30 | Emergency (ER) | payer MEDICARE, SELFPAY ==
[2024-02-21 15:45] VITALS: BP 189/74; PULSE 66; RESP 16; TEMP 36.4; O2SAT 98
--- NOTE | 2024-02-21 16:48 | ED_ITS ---
HPI - Dizziness General Chief Complaint: Dizziness Stated Complaint: dizziness Source: patient, RN notes reviewed and old records reviewed Mode of arrival: ambulatory Limitations: no limitations History of Present Illness HPI Narrative: 83-year-old female who presents to [facility] accompanied by elderly with complaints of dizziness off and on for the past 2 weeks and gradual increase in her blood pressure. Patient states no headache no complaints of any nausea and vomiting does feel worse today she reports. Patient reports that she doesn't feel right.Patient moves all extremities on own power denies any feelings of tingling in arms or legs, Patient voices no feelings of vertigo states she feels like her balance is off. MD elicited complaint: dizziness and other (blood pressure) Onset (ago): week(s) (intermittent for 2 weeks states worse today.) Related Data Home Medications ?Medication ?Instructions ?Recorded ?Confirmed ?Last Taken ?Type calcium 500 mg (as 1 tablet PO DAILY 05/10/19 12/28/23 Unknown History carbonate)-vitamin D3 5 mcg (200 unit) tablet (Os-Jericho 500 + D3) cholecalciferol (vitamin D3) 25 1,000 unit PO DAILY 05/10/19 12/28/23 Unknown History mcg (1,000 unit) capsule biotin 1 cap PO DAILY 06/07/23 12/28/23 Unknown History docusate sodium 100 mg capsule 100 mg PO DAILY 09/27/23 12/28/23 Unknown History (Colace) Allergies Allergy/AdvReac Type Severity Reaction Status Date / Time alendronate sodium Allergy Unknown Anaphylaxis Verified 02/21/24 17:16 erythromycin base Allergy Unknown GI upset Verified 02/21/24 17:16 metronidazole Allergy Unknown pass out Verified 02/21/24 17:16 Review of Systems Review of Systems: CONSTITUTIONAL: Denies fever, chills, or sweats. EYES: Denies visual changes, redness, or discharge. ENT: Denies rhinorrhea, congestion, sore throat, or otalgia. CARDIOVASCULAR: Denies chest pain, palpitations, or edema. RESPIRATORY: Denies cough or dyspnea. GASTROINTESTINAL: Denies abdominal pain, nausea, vomiting, or diarrhea. GENITOURINARY: Denies dysuria or hematuria. SKIN: Denies rash or itching. MUSCULOSKELETAL: Denies back pain, joint pain, or myalgia. NEUROLOGIC: Denies headache, numbness, or weakness.reports dizziness and feels like her balance is off. PSYCHIATRIC: Reports history of anxiety or depression. 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 Tendinitis of right rotator cuff Right shoulder pain Vertigo Hx of renal calculi RLQ abdominal pain Abdominal guarding Lightheaded Renal insufficiency, mild Chronic anticoagulation Indigestion Constipation COVID-19 Sore throat Positive ALEX (antinuclear antibody) Bilateral hand pain Finger pain, left Hematuria Blood in stool, mateus Abscess History of vaginal delivery Contact dermatitis History of measles, mumps, or rubella Chicken pox GERD (gastroesophageal reflux disease) Hemorrhoids Removed 09/2014 Mononucleosis IBS (irritable bowel syndrome) Myocardial infarction Vitamin deficiency Osteopenia Post-menopausal Hypothyroidism Hypertension Lumbar back pain Surgical History Surgical History History of hemorrhoidectomy H/O tubal ligation 1982 Family History Family History Mother Family history of dementia Father Family history of diabetes mellitus in first degree relative Acute myocardial infarction Dementia Sibling H/O aortic valve replacement Other Diabetes mellitus Family history of arthritis Hypertension Social History Social History Smoking status: Never smoker Tobacco type: cigarettes Second hand tobacco smoke exposure: Yes Additional smoking assessment comments: Was exposed to second hand ciggerette smoke for 55years- father and Alcohol intake: never Drinks per week: 2 Substance use: never Substance use type: does not use Lack of Transportation: No Lack of Food: Never True Current Housing: I Have Housing Concerned About Future Housing: No Difficulty Paying Gas/Electric Bills: No Difficulty Paying for Meds: No Currently Unemployed: No Education: High School Diploma/GED Difficulty w/ Childcare or Family Care: No Living arrangements: with family Additional living arrangements comments: Lives with . Occupation/Education: retired Gender identity (if verbalized by the patient): Female Sexual Orientation (if Verbalized by the Patient): Straight or Heterosexual Spiritual care concerns: No Comments At time of signature, agree with nursing past medical, surgical, social and family history. There is no relevant family history pertinent to the presenting complaint Exam Narrative: GENERAL: Well-appearing, well-nourished, and in no acute distress. HEAD: Normocephalic, atraumatic. EYES: PERRLA and EOMI. no nystagmus ENT: Nares clear, no rhinorrhea or epistaxis. Mucous membranes moist.TM's normal throat pink with no swelling or any redness NECK: Supple. no lymphadenopathy CHEST: Clear to auscultation. No respiratory distress.SAO2 98% o room air HEART: Regular rate and rhythm. No murmur heard. Normal peripheral pulses. ABDOMEN: Soft, nontender, nondistended, normal active bowel sounds. EXTREMITIES: Normal range of motion. No edema. SKIN: Warm, dry, no rash. NEURO: No focal deficits. Alert and oriented x3. cranial nerves II-XII intact moves all extremities well no lag, reports dizziness and feeling off balance Course Course Emergency Course: Patient is aware of diagnosis, understands and agrees to treatment plan.? Anticipatory guidance given.? Patient agrees to follow-up as directed and is aware of reasons to seek care at the emergency department. Portions of this record may have been created with voice recognition software Level of Care: Express Care Visit Vital Signs Vital signs: Vital Signs Temperature 36.4 C L 02/21/24 15:45 Pulse Rate 66 02/21/24 15:45 Respiratory Rate 16 02/21/24 15:45 Blood Pressure 189/74 H 02/21/24 15:45 Pulse Oximetry 98 02/21/24 15:45 Temperature 36.4 C L 02/21/24 15:45 Pulse Rate 66 02/21/24 15:45 Respiratory Rate 16 02/21/24 15:45 Blood Pressure 189/74 H 02/21/24 15:45 Pulse Oximetry 98 02/21/24 15:45 Reviewed Transfer Transfered to: [facility] Transportation: Other (per private cr with spouse) Transfer rationale: Elevated blood pressure and feeling of dizziness states feels like she could loose her balance. Patient has cardiac history and hypertension. Accepting physician: Dr Broderick Transfer comments: Per private car with spouse for further evaluation MDM - Dizziness MDM Narrative Medical decision making narrative: [id number] Call placed to ED at [facility] with report of patient condition, VS, and PMH reviewed with [facility] NURSE with Dr Broderick accepting patient fpr transfer. Differential Diagnosis Differential diagnosis: Likely transient cerebral ischemia and other (dizziness, hypertension, history of CAD) Medical Records Attestation: I reviewed the patient's medical records. Critical Care Time Critical Care Time Critical Care Time: No Discharge Plan Discharge Clinical Impression: Hypertension, Dizziness Patient Disposition: Acute Care Hospital Condition: Stable Patient Language: Belarusian Prescriptions: No Action biotin 1 cap PO DAILY amlodipine 5 mg tablet 5 mg PO DAILY Qty: 90 3RF calcium carbonate-vitamin D3 [Os-Jericho 500 + D3] 500 mg(1,250mg) -200 unit tablet 1 tablet PO DAILY cholecalciferol (vitamin D3) 25 mcg (1,000 unit) capsule 1,000 unit PO DAILY docusate sodium [Colace] 100 mg capsule 100 mg PO DAILY cephalexin 500 mg capsule 500 mg PO Q12H 7 Days Qty: 14 0RF levothyroxine 25 mcg tablet 37.5 mcg PO DAILY 90 Days Qty: 135 2RF sertraline 25 mg tablet 37.5 mg PO DAILY Qty: 135 0RF Follow-up/Referrals: Britton Valenzuela DO [Primary Care Provider] - Time of Disposition: 16:48 Quality Eliana Coma Scale Eyes: Open Verbal: Oriented and Alert Motor: Follows Commands [place] Coma Total Score: 15
== END 2024-02-21 16:48 | disposition short-term general hospital (02) ==
LOC: EXPGOSH 15:34
PROVIDERS: Emergency Provider Registered Nurse; PCP Internal Medicine
DX: I10 Essential (primary) hypertension (principal); R42 Dizziness and giddiness; I51.81 Takotsubo syndrome; E03.9 Hypothyroidism, unspecified; M85.80 Other specified disorders of bone density and structure, unspecified site; I25.2 Old myocardial infarction; K21.9 Gastro-esophageal reflux disease without esophagitis; Z86.16 Personal history of COVID-19
CPT/HCPCS: 99212; G0463

== ENCOUNTER 2024-02-21 17:14 | Emergency (ER) | payer MEDICARE, SELFPAY ==
--- NOTE | ~2024-02-21 | XR_ITS ---
EXAMINATION: XR chest 1V portable DATE: 02/21/2024 20:40 INDICATION: Weakness. TECHNIQUE: A single frontal view of the chest was obtained on 2 radiographs. COMPARISON: Chest single view 07/20/2023, chest CT 12/24/2022 FINDINGS: There is no pneumonia, pleural effusion, or pneumothorax. The heart size is normal. IMPRESSION: 1. No acute cardiopulmonary disease. Reviewed, dictated and finalized at location [facility]. [facility]
[2024-02-21 17:42] VITALS: BP 171/89; PULSE 66; RESP 18; TEMP 36.4; O2SAT 98
--- NOTE | 2024-02-21 19:59 | ECG_ITS ---
Test Date: 2024-02-21 20:23:34 Measurements Intervals [place] Rate: 60 P: 29 ME: 204 QRS: -32 QRSD: 88 T: 45 QT: 423 QTc: 425 Interpretive Statements SINUS RHYTHM WITH OCCASIONAL SUPRAVENTRICULAR PREMATURE COMPLEXES LEFT AXIS DEVIATION [QRS AXIS < -30] INCOMPLETE RIGHT BUNDLE BRANCH BLOCK NONSPECIFIC ST & T-WAVE ABNORMALITY No previous ECG available for comparison Electronically Signed On 02-22-2024 14:22:29 EMPLOYMENT COORDINATOR by Anabelle Lee M.D.
[2024-02-21 20:26] LABS: Basophils Absolute Auto 0.1 K/mm3 (0.0-0.1); Basophils Percent Auto 1.4 % (0.2-1.2); Eosinophils Absolute Auto 0.1 K/mm3 (0-0.3); Eosinophils Percent Auto 1.4 % (0-4.4); Hematocrit 43.5 % (37.0-47.0); Immature Granulocyte Absolute 0.01 K/mm3 (0.00-0.031); Immature Granulocyte Percent A 0.2 % (0-0.5); Lymphocytes Absolute Auto 1.14 K/mm3 (0.9-3.2); Mean Corpuscular HGB Conc 32.2 g/dl (32-36); Mean Corpuscular Hemoglobin 31.5 pg (26-34); Mean Platelet Volume 9.3 fl (7.4-10.4); Monocytes Absolute Auto 0.4 K/mm3 (0.1-0.6); Monocytes Percent Auto 8.3 % (2.6-8.5); Neutrophils Absolute Auto 3.3 K/mm3 (1.3-6.7); Neutrophils Percent Auto 65.7 % (45.5-73.1); Platelet Count Result 208 k/mm3 (150-375); Red Blood Count 4.44 M/mm3 (4.2-5.4); Red Cell Distribution Width 12.4 % (11.5-14.5)
[2024-02-21 20:37] LABS: Add Urine Microscopic? YES; Appearance Urine Clear (Clear); Bacteria Urine None Seen /hpf; Bilirubin Urine Negative (Negative); Blood Urine Trace (Negative); Color Urine Yellow (Yellow); Glucose Urine UA Negative (Negative); Ketones Urine 1+ mg/dL (Negative); Leukocyte Esterase Ur 2+ LEU/UL (Negative); Nitrate Urine Negative (Negative); Non Pathogenic Casts 0-2; Protein Urine Negative (Negative); Specific Grav Ur 1.016 (1.001-1.035); Squamous Epithelial Cell Urine None Seen /hpf (Few); Urobilinogen Urine 0.2 mg/dL (<2.0); pH Urine 7.5 (5.0-9.0)
[2024-02-21 21:05] LABS: Alanine Aminotransferase 18 U/L (6-35); Albumin Level 4.2 g/dL (3.5-5.1); Alkaline Phosphatase 93 U/L (38-126); Anion Gap 4 mmol/L (4-12); Aspartate Amino Transferase 32 U/L (14-36); Bilirubin,Total 0.5 mg/dL (0.2-1.3); Blood Urea Nitrogen 17 mg/dL (7-17); Calcium 9.4 mg/dL (8.4-10.2); Carbon Dioxide 28 mmol/L (22-30); Chloride 106 mmol/L (98-107); Estimated Glomerular Filt Rate > 60; Glucose 101 mg/dL (65-110); Magnesium 2.2 mg/dL (1.6-2.3); Potassium 4.1 mmol/L (3.4-5.0); Sodium 138 mmol/L (137-145)
[2024-02-21 21:07] LABS: Lactic Acid Reflex 0.8 mmol/L (0.7-2.0)
[2024-02-21 21:17] LABS: Troponin I < 0.012 ng/mL (0.000-0.034)
[2024-02-21 21:22] LABS: Procalcitonin 0.1 ng/mL
--- NOTE | 2024-02-21 21:28 | ED.GENADULT ---
HPI - General Adult General Chief complaint: Dizziness Stated complaint: HTN, dizziness Time Seen by Provider: 02/21/24 19:43 History of Present Illness HPI narrative: Patient is a 83-year-old female who presents emergency department with chief complaint of lightheadedness and dizziness the patient was seen in urgent care and sent to the emergency department patient has history of hypertension the patient reports that she had some physical therapy for neck pain today and reported that she felt lightheaded and felt somewhat off balance initially patient states that he had no focal weakness reports no headache reports that her symptoms have improved Related Data Home Medications ?Medication ?Instructions ?Recorded ?Confirmed ?Last Taken ?Type calcium 500 mg (as 1 tablet PO DAILY 05/10/19 12/28/23 Unknown History carbonate)-vitamin D3 5 mcg (200 unit) tablet (Os-[place] 500 + D3) cholecalciferol (vitamin D3) 25 1,000 unit PO DAILY 05/10/19 12/28/23 Unknown History mcg (1,000 unit) capsule biotin 1 cap PO DAILY 06/07/23 12/28/23 Unknown History docusate sodium 100 mg capsule 100 mg PO DAILY 09/27/23 12/28/23 Unknown History (Colace) Allergies Allergy/AdvReac Type Severity Reaction Status Date / Time alendronate sodium Allergy Unknown Anaphylaxis Verified 02/21/24 17:16 erythromycin base Allergy Unknown GI upset Verified 02/21/24 17:16 metronidazole Allergy Unknown pass out Verified 02/21/24 17:16 Review of Systems Review of Systems: A 10 system review of systems was completed on the patient and is negative except for what is stated in the HPI. Nursing and ancillary documentation was reviewed. 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 Tendinitis of right rotator cuff Right shoulder pain Vertigo Hx of renal calculi RLQ abdominal pain Abdominal guarding Lightheaded Renal insufficiency, mild Chronic anticoagulation Indigestion Constipation COVID-19 Sore throat Positive ALEX (antinuclear antibody) Bilateral hand pain Finger pain, left Hematuria Blood in stool, mateus Abscess History of vaginal delivery Contact dermatitis History of measles, mumps, or rubella Chicken pox GERD (gastroesophageal reflux disease) Hemorrhoids Removed 09/2014 Mononucleosis IBS (irritable bowel syndrome) Myocardial infarction Vitamin deficiency Osteopenia Post-menopausal Hypothyroidism Hypertension Lumbar back pain Surgical History Surgical History History of hemorrhoidectomy H/O tubal ligation 1982 Family History Family History Mother Family history of dementia Father Family history of diabetes mellitus in first degree relative Acute myocardial infarction Dementia Sibling H/O aortic valve replacement Other Diabetes mellitus Family history of arthritis Hypertension Social History Social History Smoking status: Never smoker Tobacco type: cigarettes Second hand tobacco smoke exposure: Yes Additional smoking assessment comments: Was exposed to second hand ciggerette smoke for 55years- father and Alcohol intake: never Drinks per week: 2 Substance use: never Substance use type: does not use Lack of Transportation: No Lack of Food: Never True Current Housing: I Have Housing Concerned About Future Housing: No Difficulty Paying Gas/Electric Bills: No Difficulty Paying for Meds: No Currently Unemployed: No Education: High School Diploma/GED Difficulty w/ Childcare or Family Care: No Living arrangements: with family Additional living arrangements comments: Lives with . Occupation/Education: retired Gender identity (if verbalized by the patient): Female Sexual Orientation (if Verbalized by the Patient): Straight or Heterosexual Spiritual care concerns: No Exam Narrative: GENERAL: Well-appearing, well-nourished, and in no acute distress. HEAD: Normocephalic, atraumatic. EYES: PERRLA and EOMI. ENT: Nares clear, no rhinorrhea or epistaxis. Mucous membranes moist. NECK: Supple. CHEST: Clear to auscultation. No respiratory distress. HEART: Regular rate and rhythm. No murmur heard. Normal peripheral pulses. ABDOMEN: Soft, nontender, nondistended, normal active bowel sounds. EXTREMITIES: Normal range of motion. No edema. SKIN: Warm, dry, no rash. NEURO: No focal deficits. Alert and oriented x3. PSYCH: Normal mood and affect. Course Vital Signs Vital signs: Vital Signs Temperature 36.4 C 02/21/24 17:42 Pulse Rate 66 02/21/24 17:42 Respiratory Rate 18 02/21/24 17:42 Blood Pressure 171/89 H 02/21/24 17:42 Pulse Oximetry 98 02/21/24 17:42 Temperature 36.4 C 02/21/24 17:42 Pulse Rate 66 02/21/24 17:42 Respiratory Rate 18 02/21/24 17:42 Blood Pressure 171/89 H 02/21/24 17:42 Pulse Oximetry 98 02/21/24 17:42 Medical Decision Making MDM Narrative Medical decision making narrative: Differential diagnosis includes electrolyte abnormality, hypertensive crisis, UTI, ACS EKG showed no acute ischemic changes Chest x-ray showed no focal infiltrate now troponin was negative CBC and CMP were normal urinalysis showed 11-20 white blood cells Patient is feeling much better at this time Vital Signs Vital Signs: Vital Signs Temperature 36.4 C 02/21/24 17:42 Pulse Rate 66 02/21/24 17:42 Respiratory Rate 18 02/21/24 17:42 Blood Pressure 171/89 H 02/21/24 17:42 Pulse Oximetry 98 02/21/24 17:42 Temperature 36.4 C 02/21/24 17:42 Pulse Rate 66 02/21/24 17:42 Respiratory Rate 18 02/21/24 17:42 Blood Pressure 171/89 H 02/21/24 17:42 Pulse Oximetry 98 02/21/24 17:42 Lab Data 02/21/24 20:12 02/21/24 20:12 Labs: Lab Results 02/21/24 Range/Units 20:12 WBC 5.0 (4.5-10.0) K/mm3 RBC 4.44 (4.2-5.4) M/mm3 Hgb 14.0 (12.0-15.0) g/dL Hct 43.5 (37.0-47.0) % MCV 98.0 (80-100) fl MCH 31.5 (26-34) pg MCHC 32.2 (32-36) g/dl RDW 12.4 (11.5-14.5) % Plt Count 208 (150-375) k/mm3 MPV 9.3 (7.4-10.4) fl Immature Gran % (Auto) 0.2 (0-0.5) % Neut % (Auto) 65.7 (45.5-73.1) % Lymph % (Auto) 23.0 (18.3-44.2) % [place] % (Auto) 8.3 (2.6-8.5) % Eos % (Auto) 1.4 (0-4.4) % Baso % (Auto) 1.4 H (0.2-1.2) % Lymph # (Auto) 1.14 (0.9-3.2) K/mm3 [place] # (Auto) 0.4 (0.1-0.6) K/mm3 Eos # (Auto) 0.1 (0-0.3) K/mm3 Baso # (Auto) 0.1 (0.0-0.1) K/mm3 Abs Immat Gran (auto) 0.01 (0.00-0.031) K/mm3 Absolute Neuts (auto) 3.3 (1.3-6.7) K/mm3 Absolute Nucleated RBC 0.000 (0.0-0.012) K/mm3 Nucleated RBC % 0.0 (0.0-0.2) % Sodium 138 (137-145) mmol/L Potassium 4.1 (3.4-5.0) mmol/L Chloride 106 (98-107) mmol/L Carbon Dioxide 28 (22-30) mmol/L Anion Gap 4 (4-12) mmol/L BUN 17 (7-17) mg/dL Creatinine 0.70 (0.7-1.0) mg/dL Estim Creat Clear Calc Not Reportable Estimated GFR > 60 (59 - ) Glucose 101 (65-110) mg/dL Lactic Acid 0.8 (0.7-2.0) mmol/L Calcium 9.4 (8.4-10.2) mg/dL Magnesium 2.2 (1.6-2.3) mg/dL Total Bilirubin 0.5 (0.2-1.3) mg/dL AST 32 (14-36) U/L ALT 18 (6-35) U/L Alkaline Phosphatase 93 (38-126) U/L Troponin I < 0.012 (0.000-0.034) ng/mL Total Protein 7.0 (6.3-8.2) g/dL Albumin 4.2 (3.5-5.1) g/dL Procalcitonin 0.1 ng/mL Urine Color Yellow (Yellow) Urine Appearance Clear (Clear) Urine pH 7.5 (5.0-9.0) Ur Specific [place] 1.016 (1.001-1.035) Urine Protein Negative (Negative) mg/dL Urine Glucose (UA) Negative (Negative) mg/dL Urine Ketones 1+ H (Negative) mg/dL Ur Blood (Man) Trace (Negative) Urine Nitrate Negative (Negative) Urine Bilirubin Negative (Negative) Urine Urobilinogen 0.2 (<2.0) mg/dL Leukocyte Esterase Rfl 2+ H (Negative) KATELIN/UL Urine RBC 11-20 H (0-2) /hpf Urine WBC 11-20 H (0-3) /hpf Ur Squamous Epith Cells None seen (Few) /hpf Urine Bacteria None seen /hpf Urine Casts 0-2 Discharge Plan Discharge Clinical Impression: Hypertension, Acute UTI Patient Disposition: Home, Self-Care Condition: Stable Instructions: Antibiotic Form, Urinary Tract Infection in Men (ED), Hypertension (ED), Lightheadedness (ED), Dizziness (ED) Patient Language: South African Prescriptions: New cephalexin 500 mg capsule 500 mg PO Q12H 7 Days Qty: 14 0RF No Action biotin 1 cap PO DAILY amlodipine 5 mg tablet 5 mg PO DAILY Qty: 90 3RF calcium carbonate-vitamin D3 [Os-[place]icho 500 + D3] 500 mg(1,250mg) -200 unit tablet 1 tablet PO DAILY cholecalciferol (vitamin D3) 25 mcg (1,000 unit) capsule 1,000 unit PO DAILY docusate sodium [Colace] 100 mg capsule 100 mg PO DAILY levothyroxine 25 mcg tablet 37.5 mcg PO DAILY 90 Days Qty: 135 2RF sertraline 25 mg tablet 37.5 mg PO DAILY Qty: 135 0RF Follow-up/Referrals: Britton Valenzuela DO [Primary Care Provider] - Time of Disposition: 21:33
[2024-02-21] MEDS: CEPHALEXIN 500 MG CAPSULE PO (21:46)
[2024-02-21 21:49] VITALS: BP 131/74; PULSE 82; RESP 16; TEMP 36.9; O2SAT 99
== END 2024-02-21 21:50 | disposition home or self-care (01) ==
PROVIDERS: Emergency Provider Emergency Medicine; PCP Internal Medicine
DX: R42 Dizziness and giddiness (principal); I10 Essential (primary) hypertension; I25.2 Old myocardial infarction; E03.9 Hypothyroidism, unspecified; N28.9 Disorder of kidney and ureter, unspecified; K21.9 Gastro-esophageal reflux disease without esophagitis; K58.9 Irritable bowel syndrome, unspecified; M85.80 Other specified disorders of bone density and structure, unspecified site; Z86.16 Personal history of COVID-19; Z87.442 Personal history of urinary calculi; Z77.22 Contact with and (suspected) exposure to environmental tobacco smoke (acute) (chronic); I49.1 Atrial premature depolarization; I45.10 Unspecified right bundle-branch block; R94.31 Abnormal electrocardiogram [ECG] [EKG]
CPT/HCPCS: 36415; 71045; 80053; 81001; 83605; 83735; 84145; 84484; 85025; 87086; 93005; 99284; A9270

== ENCOUNTER 2024-03-01 14:47 | Emergency (ER) | payer MEDICARE, SELFPAY ==
--- NOTE | ~2024-03-01 | XR_ITS ---
EXAMINATION: XR chest 2V Exam Date/Time: 03/01/2024 17:55 [employer] MANAGER HISTORY: sob WITH NEAR [employer]IST Comparison: 02/21/2024, 03/20/2023. RESULT: Lines, tubes, and devices: None. Lungs and pleura: Clear. Cardiomediastinal silhouette: Stable. Aortic ectasia. Other: No acute osseous or upper abdominal finding. IMPRESSION: No acute cardiopulmonary process. Reviewed, dictated and finalized at location [facility]. [employer] MANAGER
--- NOTE | 2024-03-01 14:55 | ECG_ITS ---
Test Date: 2024-03-01 15:00:04 Measurements Intervals [place] Rate: 64 P: 33 MN: 205 QRS: -15 QRSD: 93 T: 40 QT: 417 QTc: 431 Interpretive Statements SINUS RHYTHM INCOMPLETE RIGHT BUNDLE BRANCH BLOCK [90+ ms QRS DURATION, TERMINAL R IN V1/V2, 40+ ms S IN I/aVL/V4/V5/V6] Leftward axis Abnormal ECG Electronically Signed On 03-02-2024 17:03:01 [employer]ER by Braxton Arteaga M.D.
--- NOTE | 2024-03-01 14:55 | ED_ITS ---
HPI - Abdominal Pain General Chief Complaint: Nausea/Vomiting/Diarrhea <Shaylee Mantilla PA-C - Last Filed: 03/05/24 20:33> Stated Complaint: nausea, abd pain <Sahylee Mantilla PA-C - Last Filed: 03/05/24 20:33> Time Seen by Provider: 03/01/24 14:55 <Shaylee Mantilla PA-C - Last Filed: 03/05/24 20:33> Focused HPI: This is a 83 year female that presents to the ER for low abdominal pain. Reports crampy lower abdominal pain and nausea. She tried to go to the bathroom, but couldn't and felt like she was going to pass out. Reports feeling generally weak currently. Denies chest pain. GENERAL: Elderly, well-nourished, and in no acute distress. HEAD: Normocephalic, atraumatic. CHEST: Clear to auscultation. ?No respiratory distress. HEART: Regular rate and rhythm.? NEURO: ?Alert and oriented x3. Patient screened in triage and initial orders placed.? ?Additional care and disposition to be based upon?diagnostic testing and treatment. <Shaylee Mantilla PA-C - Last Filed: 03/05/24 20:33> History of Present Illness HPI narrative: Patient is a 83-year-old female who presents emergency department with chief complaint of abdominal discomfort and cramping. The patient reports that she started having cramping in her abdomen had several foul bowel movements and had a near syncopal episode patient reports she did not actually pass out but did get very clammy and became lightheaded <Armando Davalos MD - Last Filed: 03/01/24 20:55> Related Data Home Medications: Home Medications ?Medication ?Instructions ?Recorded ?Confirmed ?Last Taken ?Type calcium 500 mg (as 1 tablet PO DAILY 05/10/19 03/02/24 Unknown History carbonate)-vitamin D3 5 mcg (200 unit) tablet (Os-Jericho 500 + D3) cholecalciferol (vitamin D3) 25 1,000 unit PO DAILY 05/10/19 03/02/24 Unknown History mcg (1,000 unit) capsule biotin 1 cap PO DAILY 06/07/23 03/02/24 Unknown History docusate sodium 100 mg capsule 100 mg PO DAILY 09/27/23 03/02/24 Unknown History (Colace) <Shaylee Mantilla PA-C - Last Filed: 03/05/24 20:33> Allergies/Adverse Reactions: Allergies Allergy/AdvReac Type Severity Reaction Status Date / Time alendronate sodium Allergy Unknown Anaphylaxis Verified 03/02/24 10:04 erythromycin base Allergy Unknown GI upset Verified 03/02/24 10:04 metronidazole Allergy Unknown pass out Verified 03/02/24 10:04 <Shaylee Mantilla PA-C - Last Filed: 03/05/24 20:33> Review of Systems 2 Review of Systems: A 10 system review of systems was completed on the patient and is negative except for what is stated in the HPI. Nursing and ancillary documentation was reviewed. <Armando Davalos MD - Last Filed: 03/01/24 20:55> [facility] Past Medical History Medical History: Medical History Takotsubo cardiomyopathy Osteopenia 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 Tendinitis of right rotator cuff Right shoulder pain Vertigo Hx of renal calculi RLQ abdominal pain Abdominal guarding Lightheaded Renal insufficiency, mild Chronic anticoagulation Indigestion Constipation COVID-19 Sore throat Positive ALEX (antinuclear antibody) Bilateral hand pain Finger pain, left Hematuria Blood in stool, mateus Abscess History of vaginal delivery Contact dermatitis History of measles, mumps, or rubella Chicken pox GERD (gastroesophageal reflux disease) Hemorrhoids Removed 09/2014 Mononucleosis IBS (irritable bowel syndrome) Myocardial infarction Vitamin deficiency Osteopenia Post-menopausal Hypothyroidism Hypertension Lumbar back pain <Shaylee Mantilla PA-C - Last Filed: 03/05/24 20:33> Surgical History Surgical History: Surgical History History of hemorrhoidectomy H/O tubal ligation 1982 <Shaylee Mantilla PA-C - Last Filed: 03/05/24 20:33> Family History Family History: Family History Mother Family history of dementia Father Family history of diabetes mellitus in first degree relative Acute myocardial infarction Dementia Sibling H/O aortic valve replacement Other Diabetes mellitus Family history of arthritis Hypertension <Shaylee Mantilla PA-C - Last Filed: 03/05/24 20:33> Social History Social History: Social History Smoking status: Never smoker Tobacco type: cigarettes Second hand tobacco smoke exposure: Yes Additional smoking assessment comments: Was exposed to second hand ciggerette smoke for 55years- father and Alcohol intake: never Drinks per week: 2 Substance use: never Substance use type: does not use Lack of Transportation: No Lack of Food: Never True Current Housing: I Have Housing Concerned About Future Housing: No Difficulty Paying Gas/Electric Bills: No Difficulty Paying for Meds: No Currently Unemployed: No Education: High School Diploma/GED Difficulty w/ Childcare or Family Care: No Living arrangements: with family Additional living arrangements comments: Lives with . Occupation/Education: retired Gender identity (if verbalized by the patient): Female Sexual Orientation (if Verbalized by the Patient): Straight or Heterosexual Spiritual care concerns: No <Shaylee Mantilla PA-C - Last Filed: 03/05/24 20:33> Exam 2 Narrative: GENERAL: Well-appearing, well-nourished, and in no acute distress. HEAD: Normocephalic, atraumatic. EYES: PERRLA and EOMI. ENT: Nares clear, no rhinorrhea or epistaxis. Mucous membranes moist. NECK: Supple. CHEST: Clear to auscultation. No respiratory distress. HEART: Regular rate and rhythm. No murmur heard. Normal peripheral pulses. ABDOMEN: Soft, nontender, nondistended, normal active bowel sounds. EXTREMITIES: Normal range of motion. No edema. SKIN: Warm, dry, no rash. NEURO: No focal deficits. Alert and oriented x3. PSYCH: Normal mood and affect. <Armando Davalos MD - Last Filed: 03/01/24 20:55> Course Vital Signs Vital signs: Vital Signs Temperature 97.5 F L 03/01/24 15:00 Pulse Rate 66 03/01/24 15:00 Respiratory Rate 18 03/01/24 15:00 Blood Pressure 146/60 H 03/01/24 15:00 Pulse Oximetry 100 03/01/24 15:00 Temperature 98.1 F 03/01/24 21:05 Pulse Rate 66 03/01/24 21:05 Respiratory Rate 17 03/01/24 21:05 Blood Pressure 154/90 H 03/01/24 21:05 Pulse Oximetry 99 03/01/24 21:05 Oxygen Delivery Room Air 03/01/24 18:30 <Shaylee Mantilla PA-C - Last Filed: 03/05/24 20:33> Vital Signs Temperature 97.5 F L 03/01/24 15:00 Pulse Rate 66 03/01/24 15:00 Respiratory Rate 18 03/01/24 15:00 Blood Pressure 146/60 H 03/01/24 15:00 Pulse Oximetry 100 03/01/24 15:00 Temperature 98.1 F 03/01/24 21:05 Pulse Rate 66 03/01/24 21:05 Respiratory Rate 17 03/01/24 21:05 Blood Pressure 154/90 H 03/01/24 21:05 Pulse Oximetry 99 03/01/24 21:05 Oxygen Delivery Room Air 03/01/24 18:30 <Armando Davalos MD - Last Filed: 03/01/24 20:55> MDM - Abdominal Pain MDM Narrative Medical decision making narrative: Differential diagnosis includes diarrhea illness, gastroenteritis, electrolyte abnormality, Laboratory studies were obtained on the patient showed normal CBC CMP showed no acute abnormalities urinalysis showed 11-20 white blood cells 1+ leukocyte esterase patient has recently been treated for UTI had a negative culture at that time a urine culture has been sent today <Armando Davalos MD - Last Filed: 03/01/24 20:55> Lab Data Result diagrams: 03/01/24 15:57 03/01/24 15:57 <Shaylee Mantilla PA-C - Last Filed: 03/05/24 20:33> Labs: Lab Results 03/01/24 03/01/24 03/01/24 Range/Units 15:57 16:31 18:05 WBC 7.4 (4.5-10.0) K/mm3 RBC 4.50 (4.2-5.4) M/mm3 Hgb 14.0 (12.0-15.0) g/dL Hct 44.6 (37.0-47.0) % MCV 99.1 (80-100) fl MCH 31.1 (26-34) pg MCHC 31.4 L (32-36) g/dl RDW 12.6 (11.5-14.5) % Plt Count 212 (150-375) k/mm3 MPV 9.4 (7.4-10.4) fl Immature Gran % (Auto) 0.1 (0-0.5) % Neut % (Auto) 76.4 H (45.5-73.1) % Lymph % (Auto) 13.8 L (18.3-44.2) % [place] % (Auto) 8.3 (2.6-8.5) % Eos % (Auto) 0.9 (0-4.4) % Baso % (Auto) 0.5 (0.2-1.2) % Lymph # (Auto) 1.02 (0.9-3.2) K/mm3 [place] # (Auto) 0.6 (0.1-0.6) K/mm3 Eos # (Auto) 0.1 (0-0.3) K/mm3 Baso # (Auto) 0.0 (0.0-0.1) K/mm3 Abs Immat Gran (auto) 0.01 (0.00-0.031) K/mm3 Absolute Neuts (auto) 5.6 (1.3-6.7) K/mm3 Absolute Nucleated RBC 0.000 (0.0-0.012) K/mm3 Nucleated RBC % 0.0 (0.0-0.2) % Sodium 136 L (137-145) mmol/L Potassium 3.5 (3.4-5.0) mmol/L Chloride 106 (98-107) mmol/L Carbon Dioxide 27 (22-30) mmol/L Anion Gap 3 L (4-12) mmol/L BUN 25 H (7-17) mg/dL Creatinine 0.80 (0.7-1.0) mg/dL Estim Creat Clear Calc 43 ml/min Estimated GFR > 60 (59 - ) Glucose 139 H (65-110) mg/dL Calcium 9.3 (8.4-10.2) mg/dL Total Bilirubin 0.4 (0.2-1.3) mg/dL AST 32 (14-36) U/L ALT 19 (6-35) U/L Alkaline Phosphatase 106 (38-126) U/L Total Protein 7.0 (6.3-8.2) g/dL Albumin 4.1 (3.5-5.1) g/dL Lipase 175 (23-300) U/L Urine Color Yellow (Yellow) Urine Appearance Clear (Clear) Urine pH 5.5 (5.0-9.0) Ur Specific [place] 1.028 (1.001-1.035) Urine Protein Negative (Negative) mg/dL Urine Glucose (UA) Negative (Negative) mg/dL Urine Ketones Negative (Negative) mg/dL Ur Blood (Man) Trace (Negative) Urine Nitrate Negative (Negative) Urine Bilirubin Negative (Negative) Urine Urobilinogen 0.2 (<2.0) mg/dL Leukocyte Esterase Rfl 1+ H (Negative) KATELIN/UL Urine RBC 0-2 (0-2) /hpf Urine WBC 11-20 H (0-3) /hpf Ur Squamous Epith Cells None seen (Few) /hpf Urine Bacteria None seen /hpf Urine Casts 0-2 Influenza A (RT-PCR) Negative (Negative) Influenza B (RT-PCR) Negative (Negative) RSV (RT-PCR) Negative (Negative) SARS-CoV-2 RNA (RT-PCR) Negative (Negative) <Shaylee Mantilla PA-C - Last Filed: 03/05/24 20:33> Lab Results 03/01/24 03/01/24 03/01/24 Range/Units 15:57 16:31 18:05 WBC 7.4 (4.5-10.0) K/mm3 RBC 4.50 (4.2-5.4) M/mm3 Hgb 14.0 (12.0-15.0) g/dL Hct 44.6 (37.0-47.0) % MCV 99.1 (80-100) fl MCH 31.1 (26-34) pg MCHC 31.4 L (32-36) g/dl RDW 12.6 (11.5-14.5) % Plt Count 212 (150-375) k/mm3 MPV 9.4 (7.4-10.4) fl Immature Gran % (Auto) 0.1 (0-0.5) % Neut % (Auto) 76.4 H (45.5-73.1) % Lymph % (Auto) 13.8 L (18.3-44.2) % [place] % (Auto) 8.3 (2.6-8.5) % Eos % (Auto) 0.9 (0-4.4) % Baso % (Auto) 0.5 (0.2-1.2) % Lymph # (Auto) 1.02 (0.9-3.2) K/mm3 [place] # (Auto) 0.6 (0.1-0.6) K/mm3 Eos # (Auto) 0.1 (0-0.3) K/mm3 Baso # (Auto) 0.0 (0.0-0.1) K/mm3 Abs Immat Gran (auto) 0.01 (0.00-0.031) K/mm3 Absolute Neuts (auto) 5.6 (1.3-6.7) K/mm3 Absolute Nucleated RBC 0.000 (0.0-0.012) K/mm3 Nucleated RBC % 0.0 (0.0-0.2) % Sodium 136 L (137-145) mmol/L Potassium 3.5 (3.4-5.0) mmol/L Chloride 106 (98-107) mmol/L Carbon Dioxide 27 (22-30) mmol/L Anion Gap 3 L (4-12) mmol/L BUN 25 H (7-17) mg/dL Creatinine 0.80 (0.7-1.0) mg/dL Estim Creat Clear Calc 43 ml/min Estimated GFR > 60 (59 - ) Glucose 139 H (65-110) mg/dL Calcium 9.3 (8.4-10.2) mg/dL Total Bilirubin 0.4 (0.2-1.3) mg/dL AST 32 (14-36) U/L ALT 19 (6-35) U/L Alkaline Phosphatase 106 (38-126) U/L Total Protein 7.0 (6.3-8.2) g/dL Albumin 4.1 (3.5-5.1) g/dL Lipase 175 (23-300) U/L Urine Color Yellow (Yellow) Urine Appearance Clear (Clear) Urine pH 5.5 (5.0-9.0) Ur Specific [place] 1.028 (1.001-1.035) Urine Protein Negative (Negative) mg/dL Urine Glucose (UA) Negative (Negative) mg/dL Urine Ketones Negative (Negative) mg/dL Ur Blood (Man) Trace (Negative) Urine Nitrate Negative (Negative) Urine Bilirubin Negative (Negative) Urine Urobilinogen 0.2 (<2.0) mg/dL Leukocyte Esterase Rfl 1+ H (Negative) KATELIN/UL Urine RBC 0-2 (0-2) /hpf Urine WBC 11-20 H (0-3) /hpf Ur Squamous Epith Cells None seen (Few) /hpf Urine Bacteria None seen /hpf Urine Casts 0-2 Influenza A (RT-PCR) Negative (Negative) Influenza B (RT-PCR) Negative (Negative) RSV (RT-PCR) Negative (Negative) SARS-CoV-2 RNA (RT-PCR) Negative (Negative) <Armando Davalos MD - Last Filed: 03/01/24 20:55> Imaging Data Radiologist's impression: ITS Impressions Chest X-Ray 03/01/24 18:17 IMPRESSION: No acute cardiopulmonary process. ITS Impressions Chest X-Ray 03/01/24 18:17 IMPRESSION: No acute cardiopulmonary process. <Shaylee Mantilla PA-C - Last Filed: 03/05/24 20:33> ITS Impressions Chest X-Ray 03/01/24 18:17 IMPRESSION: No acute cardiopulmonary process. <Armando Davalos MD - Last Filed: 03/01/24 20:55> Critical Care Time Critical Care Time Critical Care Time: No <Shaylee Mantilla PA-C - Last Filed: 03/05/24 20:33> Discharge Plan Discharge Clinical Impression: Diarrhea Qualifiers: Diarrhea type: unspecified type Qualified Code(s): R19.7 - Diarrhea, unspecified Abdominal pain Qualifiers: Abdominal location: lower abdomen, unspecified Qualified Code(s): R10.30 - Lower abdominal pain, unspecified <Shaylee Mantilla PA-C - Last Filed: 03/05/24 20:33> Patient Disposition: Home, Self-Care <Shaylee Mantilla PA-C - Last Filed: 03/05/24 20:33> Condition: Stable <Shaylee Mantilla PA-C - Last Filed: 03/05/24 20:33> Instructions: Antibiotic Form, Acute Diarrhea (ED), Abdominal Pain (ED) <Shaylee Mantilla PA-C - Last Filed: 03/05/24 20:33> Patient Language: Cuban <Shaylee Mantilla PA-C - Last Filed: 03/05/24 20:33> Prescriptions: No Action biotin 1 cap PO DAILY amlodipine 5 mg tablet 7.5 mg PO DAILY Qty: 135 3RF sertraline 50 mg tablet 50 mg PO DAILY Qty: 90 0RF calcium carbonate-vitamin D3 [Os-[place] 500 + D3] 500 mg(1,250mg) -200 unit tablet 1 tablet PO DAILY cholecalciferol (vitamin D3) 25 mcg (1,000 unit) capsule 1,000 unit PO DAILY docusate sodium [Colace] 100 mg capsule 100 mg PO DAILY levothyroxine 25 mcg tablet 37.5 mcg PO DAILY 90 Days Qty: 135 2RF <Shaylee Mantilla PA-C - Last Filed: 03/05/24 20:33> Follow-up/Referrals: Britton Valenzuela, [Primary Care Provider] - <Shaylee Mantilla PA-C - Last Filed: 03/05/24 20:33> Time of Disposition: 20:55 <Shaylee Mantilla PA-C - Last Filed: 03/05/24 20:33> 20:55 <Armando Davalos MD - Last Filed: 03/01/24 20:55>
[2024-03-01 15:00] VITALS: BP 146/60; PULSE 66; RESP 18; TEMP 36.4; O2SAT 100
[2024-03-01 16:22] LABS: Basophils Percent Auto 0.5 % (0.2-1.2); Eosinophils Absolute Auto 0.1 K/mm3 (0-0.3); Eosinophils Percent Auto 0.9 % (0-4.4); Hematocrit 44.6 % (37.0-47.0); Immature Granulocyte Absolute 0.01 K/mm3 (0.00-0.031); Immature Granulocyte Percent A 0.1 % (0-0.5); Lymphocytes Absolute Auto 1.02 K/mm3 (0.9-3.2); Lymphocytes Percent Auto 13.8 % (18.3-44.2); Mean Corpuscular HGB Conc 31.4 g/dl (32-36); Mean Corpuscular Hemoglobin 31.1 pg (26-34); Mean Corpuscular Volume 99.1 fl (80-100); Mean Platelet Volume 9.4 fl (7.4-10.4); Monocytes Absolute Auto 0.6 K/mm3 (0.1-0.6); Monocytes Percent Auto 8.3 % (2.6-8.5); Neutrophils Absolute Auto 5.6 K/mm3 (1.3-6.7); Neutrophils Percent Auto 76.4 % (45.5-73.1); Platelet Count Result 212 k/mm3 (150-375); Red Cell Distribution Width 12.6 % (11.5-14.5); White Blood Count 7.4 K/mm3 (4.5-10.0)
[2024-03-01 16:40] LABS: Alanine Aminotransferase 19 U/L (6-35); Albumin Level 4.1 g/dL (3.5-5.1); Alkaline Phosphatase 106 U/L (38-126); Anion Gap 3 mmol/L (4-12); Aspartate Amino Transferase 32 U/L (14-36); Bilirubin,Total 0.4 mg/dL (0.2-1.3); Blood Urea Nitrogen 25 mg/dL (7-17); Calcium 9.3 mg/dL (8.4-10.2); Carbon Dioxide 27 mmol/L (22-30); Chloride 106 mmol/L (98-107); Estimated CRCL calculation 43 ml/min; Estimated Glomerular Filt Rate > 60; Glucose 139 mg/dL (65-110); Lipase 175 U/L (23-300); Potassium 3.5 mmol/L (3.4-5.0); Sodium 136 mmol/L (137-145)
[2024-03-01 16:41] LABS: Add Urine Microscopic? YES; Appearance Urine Clear (Clear); Bacteria Urine None Seen /hpf; Bilirubin Urine Negative (Negative); Blood Urine Trace (Negative); Color Urine Yellow (Yellow); Glucose Urine UA Negative (Negative); Ketones Urine Negative (Negative); Leukocyte Esterase Ur 1+ LEU/UL (Negative); Nitrate Urine Negative (Negative); Non Pathogenic Casts 0-2; Protein Urine Negative (Negative); RBC Urine 0-2 /hpf (0-2); Specific Grav Ur 1.028 (1.001-1.035); Squamous Epithelial Cell Urine None Seen /hpf (Few); Urobilinogen Urine 0.2 mg/dL (<2.0); pH Urine 5.5 (5.0-9.0)
[2024-03-01 18:30] VITALS: PULSE 66; RESP 15; TEMP 36.8; O2SAT 99
[2024-03-01 18:41] VITALS: BP 168/78; PULSE 89; RESP 17; TEMP 36.7; O2SAT 100
[2024-03-01 18:45] LABS: Influenza A QL RT-PCR Negative (Negative); Influenza B QL RT-PCR Negative (Negative); RSV RNA, RT-PCR Negative (Negative); SARS-CoV-2 RNA PCR Negative (Negative)
[2024-03-01 21:05] VITALS: BP 154/90; PULSE 66; RESP 17; TEMP 36.7; O2SAT 99
== END 2024-03-01 21:06 | disposition home or self-care (01) ==
PROVIDERS: Physician Assistant; Emergency Provider Emergency Medicine; PCP Internal Medicine
DX: R19.7 Diarrhea, unspecified (principal); R10.30 Lower abdominal pain, unspecified; Z20.822 Contact with and (suspected) exposure to COVID-19; K21.9 Gastro-esophageal reflux disease without esophagitis; I25.2 Old myocardial infarction; E03.9 Hypothyroidism, unspecified; I10 Essential (primary) hypertension
CPT/HCPCS: 36415; 71046; 80053; 81001; 83690; 85025; 87077; 87086; 87186; 87637; 93005; 99283

== ENCOUNTER 2024-08-28 14:07 | Outpatient (CLI) | payer MEDICARE, SELFPAY ==
--- NOTE | ~2024-08-28 | DEXA_ITS ---
Bone Density Report Name: JONATHAN EPPS Age: 83 Sex: Female Ethnicity: White Date of : 1940 Indication: osteopenia; parental hip fracture; height loss; Referring Provider: Paige Guerrier Study: Bone densitometry was performed. Exam Date: August 28, 2024 Accession number: [id number] Bone Density: Region BMD T-score Z-score Classification AP Spine(L1-L4) 1.014 -0.3 2.5 Normal Femoral Neck (Left) 0.606 -2.2 0.3 Osteopenia Total Hip (Left) 0.759 -1.5 0.8 Osteopenia Femoral Neck (Right) 0.626 -2.0 0.5 Osteopenia Total Hip (Right) 0.797 -1.2 1.1 Osteopenia Total Hip Mean 0.778 -1.4 1.0 Osteopenia World Health Organization criteria for BMD impression classify patients as: Normal (T-score at or above -1.0), Osteopenia (T-score between -1.0 and -2.5), or Osteoporosis (T-score at or below -2.5). 10-year Fracture Risk(1): Major Osteoporotic Fracture 31% Hip Fracture 21% Reported Risk Factors: [place] (), Neck BMD=0.606, BMI=24.5, parental fracture (1) FRAX(R) Version 3.08. Fracture probability calculated for an untreated patient. Fracture probability may be lower if the patient has received treatment. Previous Exams: -- Region Exam Age BMD T-score BMD Change BMD Change Date g/cm2 vs Baseline vs Previous -- AP Spine (L1-L4) 08/28/2024 83 1.014 -0.3 13.8%* 1.5% 08/23/2022 81 0.999 -0.4 12.1%* 1.6% 07/22/2020 79 0.983 -0.6 10.3%* 9.2%* 06/30/2016 75 0.900 -1.3 1.0% -4.0%* 05/28/2014 73 0.938 -1.0 5.3%* 6.2%* 04/14/2012 71 0.883 -1.5 -0.8% -2.5% 08/11/2009 68 0.906 -1.3 1.7% 2.1% 06/16/2007 66 0.887 -1.5 -0.4% 2.0% 07/19/2006 65 0.870 -1.6 -2.4% -2.4% 07/30/2005 64 0.891 -1.4 Total Hip(Left) 08/28/2024 83 0.759 -1.5 -4.3%* -0.3% 08/23/2022 81 0.761 -1.5 -4.0%* 0.1% 07/22/2020 79 0.761 -1.5 -4.1%* -1.0% 07/04/2018 77 0.769 -1.4 -3.1% -5.8%* 06/30/2016 75 0.816 -1.0 2.9% 0.4% 05/28/2014 73 0.813 -1.1 2.5% 0.2% 04/14/2012 71 0.811 -1.1 2.3% -1.2% 08/11/2009 68 0.821 -1.0 3.5%* 1.6% 06/16/2007 66 0.808 -1.1 1.9% 1.9% 07/30/2005 64 0.793 -1.2 Total Hip(Right) 08/28/2024 83 0.797 -1.2 -7.2%* -2.4% 08/23/2022 81 0.816 -1.0 -4.9%* 0.2% 07/22/2020 79 0.814 -1.0 -5.1%* 0.4% 07/04/2018 77 0.811 -1.1 -5.5%* -5.3%* 06/30/2016 75 0.856 -0.7 -0.2% 1.9% 05/28/2014 73 0.840 -0.8 -2.1% 1.4% 04/14/2012 71 0.829 -0.9 -3.5%* -0.4% 08/11/2009 68 0.832 -0.9 -3.1% 2.5% 06/16/2007 66 0.812 -1.1 -5.4%* -5.4%* 07/30/2005 64 0.858 -0.7 -- *Denotes significance at 95% confidence level, LSC for AP Spine = 0.022 g/cm2, LSC for Total Hip = 0.027 g/cm2 Clinical Information Provided by Patient: Parent has had a hip fracture Has used the following medications: Boniva (i.e. ibandronate), Fosamax (i.e. alendronate), HRT (i.e. estrogen/hormone therapy), Vitamin D, Calcium Patient maximum height was 67 Menopause Age: 44 Drinks caffeinated beverages Onset of menses at age 12 Number of children 2 Impression: The patient has low bone mass, based on the Left Femoral Neck T-score. The patient has an estimated ten-year risk of hip fracture of 21% and an estimated ten-year risk of major fracture of 31%, based on the WHO FRAX algorithm. The patient has risk factors, including: parental hip fracture. No significant bone loss was observed. Discussion: BONE DENSITY IS LOW AT ONE OR MORE SKELETAL SITES. THE PATIENT'S BMD AND CLINICAL RISK FACTORS CONTRIBUTE TO THIS PATIENT'S HIGH RISK OF FRACTURE. This patient's lowest T-score is low at one or more skeletal sites. It meets the World Health Organization's (WHO) criteria for ?low bone mass? (T-score between -1.0 and -2.5). The patient's 10-year risk of hip fracture and 10 year risk of a major osteoporotic fracture as calculated by FRAX exceeds the threshold where pharmacological therapy is recommended by the National Osteoporosis Foundation (NOF). However, all treatment decisions require clinical judgment and consideration of individual patient factors, including patient preferences, comorbidities, previous drug use, risk factors not captured in the FRAX model (e.g., frailty, falls, vitamin D deficiency, increased bone turnover, interval significant decline in bone density) and possible under or overestimation of fracture risk by FRAX. The patient should follow a healthful lifestyle (good nutrition with adequate calcium and vitamin D, and appropriate weight-bearing exercise). Follow-Up: Consider a repeat BMD and Vertebral Fracture Assessment (VFA) exam in 2 years or sooner if medically necessary, to reassess this patient's status. Reported by: ALY on 08/28/2024 2:35:00 PM. Reviewed, dictated and finalized at location A.
== END 2024-08-28 14:08 | disposition home or self-care (01) ==
LOC: MICIMG 14:08
PROVIDERS: PCP Internal Medicine; Visit Provider Nurse Practitioner
DX: Z78.0 Asymptomatic menopausal state (principal); M85.852 Other specified disorders of bone density and structure, left thigh; M85.851 Other specified disorders of bone density and structure, right thigh
CPT/HCPCS: 77080

== ENCOUNTER 2024-11-02 12:54 | Outpatient (NON) | payer MEDICARE, SELFPAY ==
--- OUTSIDE RECORDS SUMMARY | 2024-11-02 13:00 | XMS_ITS | Clinical Summary ---
Author Organization [facility] Address [address] 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 This disclosure is being madepursuant to the Care Everywhere program and may not contain all information available regarding this patient. 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 Gender Identity Not on file Sexual Orientation Not on file Plan of Treatment Health Maintenance Due Date Last Done Comments BONE DENSITY TESTING 1940 MEDICARE AWV 12 MONTHS 1940 DTAP/TDAP/TD VACCINES (1 - Tdap) 11/03/1959 PNEUMOCOCCAL VACCINE 50+ (1 of 1 - PCV) 1990 ZOSTER VACCINE (1 of 2) 1990 Respiratory Syncytial Virus (RSV) Vaccine Pt: or over 60 yrs (1 - 1-dose 75+ series) 11/03/2015 COVID-19 VACCINE ( - 2023-2 5 season) 2023 DEPRESSION SCREENING 03/07/2024 INFLUENZA VACCINE (#1) 2024 HEPATITIS B VACCINE Aged Out No longe r eligible based on patient's age to complete this topic HIB VACCINE Aged Out No longer eligi ble based on patient's age to complete this topic HPV VACCINE Aged Out No longer eligi ble based on patient's age to complete this topic MENINGOCOCCAL (Group B) VACC INE SHARED DECISION-MAKING Aged Out No longer eligibl e based on patient's age to complete this topic MENINGOCOCCAL GROUPS A/C/Y/W VACCINE Aged Out No longer eligible b ased on patient's age to complete this topic Insurance MEDICARE MEDICARE [facility]
--- OUTSIDE RECORDS SUMMARY | 2024-11-02 13:00 | XMS_ITS | Clinical Summary ---
Author Organization [facility] [place] [address] Address [address] [place] [address] Care Team Providers Care Mammography Technologist Name Role Phone Britton Valenzuela DO Primary Care Provider +1- [phone] Allergies Active Allergy Reactions Criticality Noted Date Comments Alendronate Swelling Medium 11/16/2021 Erythromycin Unknown,Diarrhea Low 09/11/2008 Metronidazole Unknown,Dizziness Low 09/11/2008 Metronidazole Hcl Unknown 09/17/2014 Medications cholecalciferol (cholecalcifero l) 1,000 unit tablet 0 11/22/2011 Active calcium carbonate-vitam in D3 (OS-ROSA 500 + D3) 1,250mg (500mg elemental) - 200 units per tablet take 1 by Oral route every day 0 11/22/2011 Active levothyroxine (SYNTHROID) 137 mcg tablet Take 0.0375 tablets by mouth daily 02/22/2022 Active biotin 1 mg tablet Take 1 tablet (1,000 mcg total) by mouth 3 (three) times a day Active amLODIPine (NORVASC) 5 mg tablet Take 1 tablet (5 mg total) by mouth daily 90 tablet 12/20/2023 Active sertraline (ZOLOFT) 25 mg tablet 11/15/2023 Active Active Problems Problem Noted Date Diagnosed Date ALEX positive 11/16/2021 Takotsubo cardiomyopathy 04/06/2017 Medical History Medical History Date Comments Hx Other Medical DJD Social History Tobacco Use Types Packs/Day Years Used Date Smoking Tobacco: Never Smokeless Tobacco: Never Tobacco Cessation:Counseling Given: Not Answered Alcohol Use Standard Drinks/Week Comments Yes 0 (1 standard drink = 0.6 oz pur e alcohol) Comments Unknown Sex and Gender Information Value Date Recorded Sex Assigned at Not on file 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 Gender Identity Female 07/15/2021 6:32 AM CDT Sexual Orientation Not on file Obstetrics History Last Filed Vital Signs Vital Sign Reading Time Taken Comments Blood Pressure 132/80 07/26/2024 12:58 PM CDT Pulse 63 07/26/2024 12:58 PM CDT Temperature 36.7 C (98.1 F) 11/16/2021 9:32 AM CDT Respiratory Rate - - Oxygen Saturation 95% 07/26/2024 12:58 PM CDT Inhaled Oxygen Concentration - - Weight 67 kg (147 lb 12.8 oz) 07/26/2024 12:58 P M CDT Height 170.2 cm (5' 7) 07/26/2024 12:58 PM CDT Body Mass Index 23.15 07/26/2024 12:58 PM CDT Plan of Treatment Health Maintenance Due Date Last Done Comments Depression Screening 1940 Fall Risk Assessment 1940 Osteoporosis Screening-Bone Density Scan 1940 DTaP/Tdap/Td Vaccine (1 - Tdap) 11/03/1951 Hepatitis B Screening 1958 Well Visit 65+ 2005 Pneumococcal vaccine 65+ (2 of 2 - PCV20 or PCV21) 01/09/2018 01/09/2017 Zoster Vaccine (2 of 2) 05/31/2019 04/05/2019 Influenza Vaccine (#1) 2024 9, 11/29/2017, 12/14/2016, Additional history exists Insurance [facility] MEDICARE MEDICARE [facility] MEDICARE Care Teams Mammography Technologist Relationship Specialty Start Date End Date Britton Valenzuela DO PCP - General 06/04/16
--- OUTSIDE RECORDS SUMMARY | 2024-11-02 13:00 | XMS_ITS | Encounter Summary ---
Author Organization [facility] Address [address] [place] [address] Care Team Providers Care National Account Representative Name Role Phone Unavailable Primary Care Provider Unavailabl e Encounter Details Date Type Department Care Team (Late st Contact Info) Description 04/26/2019 Lab Requisition [facility] DermPath Lab [address] [place] [id number] Lloyd Garcia MD [address] [place] [address] Social History Tobacco Use Types Packs/Day Years Used Date Smoking Tobacco: Never Assessed Comments Unknown Sex and Gender Information Value Date Recorded Sex Assigned at Not on file Legal Sex Female 11:45 AM OPERATIONS SUPPORT REPRESENTATIVE Gender Identity Not on file Sexual Orientation Not on file documented as of this encounter Plan of Treatment Not on file documented as of this encounter Procedures Procedure Name Priority Date/Time Associated Diagnosis Comments DERMATOPATHOLOGY Routine 04/25/2019 12:0 0 AM OPERATIONS SUPPORT REPRESENTATIVE documented in this encounter Results * DERMATOPATHOLOGY (04/25/2019 12:00 AM OPERATIONS SUPPORT REPRESENTATIVE) Case Report Dermatopathology Report Case: [id number] Authorizing Provider: Lloyd Garcia MD Collected: 04/25/2019 12:00 AM Ordering Location: [facility] DermPath Lab Received: 04/26/2019 11:54 AM Pathologist: Zofia Logan MD Specimen: Skin, right lat chin 0 8:44 AM OPERATIONS SUPPORT REPRESENTATIVE DERMATOPATHOLOGY LABORATORY Final Diagnosis Specimen A. SKIN, right lat chin: SEBORRHEIC KERATOSIS, IRRITATED (L82.0) EPIDERMAL NECROSIS SUGGESTIVE OF EXCORIATION (L98.499) MILIUM (L72.8) (see microscopic description) 0 8:44 AM OPERATIONS SUPPORT REPRESENTATIVE DERMATOPATHOLOGY LABORATORY at [address] [facility] Clinical History R/O BCC 0 8:44 AM [facility] DERMATOPATHOLOGY LABORATORY Gross Description Specimen A: Received is one formalin filled container labeled with the patient's name and designated right lat chin. The specimen consists of a shave biopsy measuring 8x7x2 mm. Jar 0. 0 8:44 AM [facility] DERMATOPATHOLOGY LABORATORY Microscopic Description Specimen A. SKIN, right lat chin: There is acanthosis consisting of fairly uniform squamous cells with eosinophilic cytoplasm and squamous eddies. The epidermis is focally necrotic and covered with a scale-crust. There is fibrin at the base. In addition, there is a space that contains loosely aggregated cornified cells surrounded by epithelium that resembles normal epidermis. Additional deeper sections were obtained and reviewed. 0 8:44 AM [facility] DERMATOPATHOLOGY LABORATORY Disclaimer An external and internal positive and negative controls are appropriate for the histochemical, immunohistochemical and immunofluorescence stain(s) in this case (if any), except where stated explicitly. The performance characteristics of the stain(s) cited in this report were developed and its performance characteristic determined by the Dermatopathology Laboratory at [facility], directed by Dr. Simone Logan. These tests need not be, and therefore are not, approved by the [place] Food and Drug Administration. The tests are used for clinical purposes. Billing Codes Specimen Charges Stain Charges 26403 1 0 8:44 AM [facility] DERMATOPATHOLOGY LABORATORY Embedded Images 0 8:44 AM [facility] DERMATOPATHOLOGY LABORATORY Pathology/Cytolog y TISSUE SPECIMEN FROM SKIN / Unknown 04/25/2019 04/26/2019 11:54 AM [facility] us Lloyd Garcia MD LAB - PATHOLOGY/CYTOLOGY ORD ERABLES Final Result DERMATOPATHOLOGY LABORATORY [facility] - Department of Dermatology [address] [place] [address], [facility] [phone] documented in this encounter Visit Diagnoses Not on filedocumented in this encounter
--- OUTSIDE RECORDS SUMMARY | 2024-11-02 13:00 | XMS_ITS | Encounter Summary ---
Author Organization [facility] Address [address] [place] [address] Phone Care Team Providers Care Meatman Name Role Phone Britton Valenzuela DO Primary Care Provider +1- [phone] Encounter Details Date Type Department Care Team (Late st Contact Info) Description 07/31/2021 Orders Only [facility] Scanning, Provider Social History Tobacco Use Types Packs/Day Years Used Date Smoking Tobacco: Never Smokeless Tobacco: Never Alcohol Use Standard Drinks/Week Comments Yes 0 (1 standard drink = 0.6 oz pur e alcohol) Comments Unknown Sex and Gender Information Value Date Recorded Sex Assigned at Not on file Legal Sex Female 1:58 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 Gender Identity Female 07/15/2021 6:32 AM CDT Sexual Orientation Not on file documented as of this encounter Plan of Treatment Not on file documented as of this encounter Procedures Procedure Name Priority Date/Time Associated Diagnosis Comments SCAN - RADIOLOGY/IMAGING 07/31/2021 documented in this encounter Results * SCAN - RADIOLOGY/IMAGING (07/31/2021) Anatomical Region Laterality Modality Other us Provider Scanning Final Result documented in this encounter Visit Diagnoses Not on filedocumented in this encounter Care Teams Meatman Relationship Specialty Start Date End Date Britton Valenzuela DO PCP - General 06/04/16 documented as of this encounter
--- OUTSIDE RECORDS SUMMARY | 2024-11-02 13:00 | XMS_ITS | Encounter Summary ---
Author Organization [facility] Address [address] [place] [address] Phone Care Team Providers Care Web Marketing Assistant Name Role Phone Britton Valenzuela DO Primary Care Provider +1- [phone] Encounter Details Date Type Department Care Team (Late st Contact Info) Description 08/06/2021 Orders Only [facility] Scanning, Provider Social History Tobacco Use Types Packs/Day Years Used Date Smoking Tobacco: Never Smokeless Tobacco: Never Alcohol Use Standard Drinks/Week Comments Yes 0 (1 standard drink = 0.6 oz pur e alcohol) Comments Unknown Sex and Gender Information Value Date Recorded Sex Assigned at Not on file Legal Sex Female 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 Gender Identity Female 07/15/2021 6:32 AM CDT Sexual Orientation Not on file documented as of this encounter Plan of Treatment Not on file documented as of this encounter Procedures Procedure Name Priority Date/Time Associated Diagnosis Comments SCAN - LABS 08/06/2021 documented in this encounter Results * SCAN - LABS (08/06/2021) us Provider Scanning Final Result documented in this encounter Visit Diagnoses Not on filedocumented in this encounter Care Teams Web Marketing Assistant Relationship Specialty Start Date End Date Britton Valenzuela DO PCP - General 06/04/16 documented as of this encounter
--- OUTSIDE RECORDS SUMMARY | 2024-11-02 13:00 | XMS_ITS | Clinical Summary ---
Author Organization [facility] Address [address] [place] [address] Phone Care Team Providers Care Knowledge Engineer Name Role Phone Britton Valenzuela DO Primary Care Provider Allergies Active Allergy Reactions Criticality Noted Date Comments Erythromycin Diarrhea Low 09/11/2008 Metronidazole Dizziness Low 09/11/2008 Medications aspirin (MARKOS) 81 mg Oral Tab Take by mouth. Active amlodipine (NORVASC) 5 mg Oral Tab Take by mouth. Active CALCIUM CARBONATE/VITAMI N D2 (OS-ROSA 500 + D PO) Take by mouth. Active Cholecalciferol, Vitamin D3, (VITAMIN D) 1,000 unit Oral Cap Take by mouth. Active MULTIVITAMINS WITH FLUORIDE (MULTI-VITAMIN PO) Take by mouth. Active B Complex-Minerals (STRESS B/ZINC) Oral Tab Take by mouth. Active Active Problems Patient Care Coordination No te Formatting of this note migh t be different from the original. Primary Care: Britton Valenzuela DO Referring Provider: Britton Valenzuela [address] [place] [address] [place] [address] Other: Ref by dr niño Problem Noted Date Diagnosed Date Arthropathy, unspecified, site unspecified IBS (irritable bowel syndrome) Heart attack Family History Medical History Relation Name Comments Colon Cancer Paternal Grandfather Stroke Paternal Grandmother Breast Cancer Neg Hx Ovarian Cancer Neg Hx Uterine Cancer Neg Hx Relation Name Status Comments Paternal Grandfather Paternal Grandmother Social History Tobacco Use Types Packs/Day Years Used Date Smoking Tobacco: Never Smokeless Tobacco: Never Alcohol Use Standard Drinks/Week Comments Yes 0 (1 standard drink = 0.6 oz pur e alcohol) occasionally Comments No Sex and Gender Information Value Date Recorded Sex Assigned at Not on file Legal Sex Female 5:45 AM CARE MANAGER Gender Identity Not on file Sexual Orientation Not on file Occupation Industry Job Start Date Job End Date Not on file Not on file Not on file Not on file Last Filed Vital Signs Vital Sign Reading Time Taken Comments Blood Pressure 138/76 11/18/2010 1:13 PM CDT Pulse - - Temperature - - Respiratory Rate - - Oxygen Saturation - - Inhaled Oxygen Concentration - - Weight 68.5 kg (151 lb) 11/18/2010 1:13 PM CDT Height 168.9 cm (5' 6.5) 11/18/2010 1:13 PM CDT Body Mass Index 24.01 11/18/2010 1:13 PM CDT Plan of Treatment Health Maintenance Due Date Last Done Comments DTAP/TDAP/TD VACCINES (1 - Tdap) 11/03/1959 PNEUMOCOCCAL VACCINE 50+ YEARS (1 of 1 - PCV) 11/02/18 91 ZOSTER VACCINE (1 of 2) 1990 OSTEOPOROSIS SCREENING 2005 RSV VACCINE (60+ or ) (1 - 1-dose 75+ series) 11/03/2015 INFLUENZA VACCINE (#1) 2024 Insurance MEDICARE PART A AND B [employer] Care Teams Knowledge Engineer Relationship Specialty Start Date End Date Britton Valenzuela DO PCP - General 02/20/15
--- OUTSIDE RECORDS SUMMARY | 2024-11-02 13:00 | XMS_ITS | Encounter Summary ---
Author Organization [facility] Address [address] [place] [address] Care Team Providers Care Operation Shift Supervisor Name Role Phone Unavailable Primary Care Provider Unavailabl e Encounter Details Date Type Department Care Team (Late st Contact Info) Description 07/29/2022 Lab Requisition [facility] - DermPath Lab [address] [place] [id number] Lloyd Garcia MD [address] [place] [address] Social History Tobacco Use Types Packs/Day Years Used Date Smoking Tobacco: Never Assessed Comments Unknown Sex and Gender Information Value Date Recorded Sex Assigned at Not on file Legal Sex Female 11:45 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 Gender Identity Not on file Sexual Orientation Not on file documented as of this encounter Plan of Treatment Not on file documented as of this encounter Procedures Procedure Name Priority Date/Time Associated Diagnosis Comments DERMATOPATHOLOGY Routine 07/28/2022 3:33 AM CDT documented in this encounter Results * DERMATOPATHOLOGY (07/28/2022 3:33 AM CDT) Case Report Dermatopathology Report Case: [id number] Authorizing Provider: Lloyd Garcia MD Collected: 07/28/2022 03:33 AM Ordering Location: [facility] Derm[facility] Lab Received: 07/30/2022 06:34 AM Pathologist: Maria Fernanda Malin MD Specimen: Skin, ant top right shoulder 1:52 PM CDT DERMATOPATHOLOGY LABORATORY Final Diagnosis Specimen A. SKIN, ant top right shoulder: INTRADERMAL MELANOCYTIC NEVUS WITH CONGENITAL FEATURES (D22.9) PRESENT AT MARGIN 1:52 PM CDT DERMATOPATHOLOGY LABORATORY at 1352 CDT Clinical History R/O ISK, BCC, Other. Please Check Margins. 1:52 PM CDT DERMATOPATHOLOGY LABORATORY Gross Description Specimen A: Received is one formalin filled container labeled with the patients name and designated ant top right shoulder. The specimen consists of a shave removal measuring [id number] that is bisected and another piece of tissue measuring [id number]. Both pieces of tissue are inked. Jar 0+. 1:52 PM CDT DERMATOPATHOLOGY LABORATORY Microscopic Description Specimen A. SKIN, ant top right shoulder: There are nests of cytologically bland melanocytes within the dermis. Some of these melanocytes are concentrated around blood vessels and adnexal structures. This lesion is present at the margin of the specimen. 1:52 PM CDT DERMATOPATHOLOGY LABORATORY Disclaimer An external and internal positive and negative controls are appropriate for the histochemical, immunohistochemical and immunofluorescence stain(s) in this case (if any), except where stated explicitly. The performance characteristics of the stain(s) cited in this report were developed and its performance characteristic determined by the Dermatopathology Laboratory at [facility], directed by Dr. Simone Logan. These tests need not be, and therefore are not, approved by the [place] Food and Drug Administration. The tests are used for clinical purposes. Billing Codes Specimen Charges Stain Charges 40848 1 3 1:52 PM CDT DERMATOPATHOLOGY LABORATORY Embedded Images 3 1:52 PM CDT DERMATOPATHOLOGY LABORATORY Pathology/Cytolo gy TISSUE SPECIMEN FROM SKIN / Unknown 07/28/2022 3:33 AM CDT 07/30/2022 6:34 AM CDT us Lloyd Garcia MD LAB - PATHOLOGY/CYTOLOGY ORD ERABLES Final Result DERMATOPATHOLOGY LABORATORY [facility] - Department of Dermatology [address] [place] [address], [facility] [phone] documented in this encounter Visit Diagnoses Not on filedocumented in this encounter
[2024-11-02 18:52] LABS: Add Urine Microscopic? YES; Appearance Urine Cloudy (Clear); Glucose Urine UA Negative (Negative); Leukocyte Esterase Ur 2+ LEU/UL (Negative); Nitrate Urine Negative (Negative); Non Pathogenic Casts >20; Specific Grav Ur 1.025 (1.001-1.035)
== END 2024-11-02 12:55 | disposition home or self-care (01) ==
LOC: ANHGOSHLAB 12:55
PROVIDERS: PCP Internal Medicine; Visit Provider Nurse Practitioner
DX: R30.0 Dysuria (principal)
CPT/HCPCS: 81001; 87086

== ENCOUNTER 2024-12-17 07:52 | Outpatient (CLI) | payer MEDICARE, SELFPAY ==
--- OUTSIDE RECORDS SUMMARY | 2024-12-17 07:59 | XMS_ITS | Encounter Summary ---
Author Organization [facility] Address [address] [place] [address] Phone Care Team Providers Care Information Security Specialist Name Role Phone Britton Valenzuela DO Primary Care Provider Encounter Details Date Type Department Care Team [...] on file Legal Sex Female 1:58 AM PROFILER HAND Gender Identity Female 07/15/2021 6:32 AM CDT [...] on filedocumented in this encounter Care Teams Information Security Specialist Relationship Specialty Start Date End Date Britton Valenzuela DO PCP - General 06/04/16 documented as of this encounter
--- OUTSIDE RECORDS SUMMARY | 2024-12-17 07:59 | XMS_ITS | Encounter Summary ---
Author Organization [facility] Address [address] [place] [address] Care Team Providers Care Wheel Braider Name Role Phone Unavailable Primary Care Provider Unavailabl e Encounter Details Date Type Department Care Team (Late st Contact Info) Description 07/29/2022 Lab Requisition [facility] - DermPath Lab [address] [place] [id number] Lloyd Garcia MD [address] [place] [address] Social History Tobacco Use Types Packs/Day Years Used Date Smoking Tobacco: Never Assessed Comments Unknown Sex and Gender Information Value Date Recorded Sex Assigned at Not on file Legal Sex Female 11:45 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 Gender Identity Not on file Sexual Orientation Not on file documented as of this encounter Plan of Treatment Not on file documented as of this encounter Procedures Procedure Name Priority Date/Time Associated Diagnosis Comments DERMATOPATHOLOGY Routine 07/28/2022 3:33 AM CDT documented in this encounter Results * DERMATOPATHOLOGY (07/28/2022 3:33 AM CDT) Case Report Dermatopathology Report Case: [id number] Authorizing Provider: Lloyd Garcia MD Collected: 07/28/2022 03:33 AM Ordering Location: [facility] DermPath Lab Received: 07/30/2022 06:34 AM [...] specimen consists of a shave removal measuring [id number] that is bisected and another piece of tissue measuring [id number]. Both pieces of tissue are inked. Jar [...] characteristic determined by the Dermatopathology Laboratory at [facility], directed by Dr. Simone Logan. These tests need not be, and therefore are not, approved by the [place] Food and Drug Administration. The tests are used for clinical purposes. Billing Codes Specimen Charges Stain Charges 45982 1 3 1:52 PM CDT DERMATOPATHOLOGY LABORATORY Embedded Images 3 1:52 PM CDT DERMATOPATHOLOGY LABORATORY Pathology/Cytolo gy TISSUE SPECIMEN FROM SKIN / Unknown 07/28/2022 3:33 AM CDT 07/30/2022 6:34 AM CDT us Lloyd Garcia MD LAB - PATHOLOGY/CYTOLOGY ORD ERABLES Final Result DERMATOPATHOLOGY LABORATORY [facility] - Department of Dermatology [address] [place] [address], [facility] [phone] documented in this encounter Visit Diagnoses Not on filedocumented in this encounter
--- OUTSIDE RECORDS SUMMARY | 2024-12-17 07:59 | XMS_ITS | Clinical Summary ---
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 MEDICARE MEDICARE [facility] MEDICARE Care Teams Carbide Operator Relationship Specialty Start Date End Date Britton Valenzuela DO PCP - General 06/04/16
--- OUTSIDE RECORDS SUMMARY | 2024-12-17 07:59 | XMS_ITS | Encounter Summary ---
Author Organization [facility] Address [address] [place] [address] Care Team Providers Care Explosive Specialist Name Role Phone Unavailable Primary Care Provider Unavailabl e Encounter Details Date Type Department Care Team (Late st Contact Info) Description 04/26/[address] Re[address] [facility] DermPath Lab [address] [place] [id number] Lloyd Garcia MD [address] [place] [address] Social History Tobacco Use Types Packs/Day Years Used Date Smoking Tobacco: Never Assessed Comments Unknown Sex and Gender Information Value Date Recorded Sex Assigned at Not on file Legal Sex Female 11:45 AM BILLET CUTTER Gender Identity Not on file Sexual Orientation Not on file documented as of this encounter Plan of Treatment Not on file documented as of this encounter Procedures Procedure Name Priority Date/Time Associated Diagnosis Comments DERMATOPATHOLOGY Routine 04/25/2019 12:0 0 AM BILLET CUTTER documented in this encounter Results * DERMATOPATHOLOGY (04/25/2019 12:00 AM BILLET CUTTER) Case Report Dermatopathology Report Case: [id number] Authorizing Provider: Lloyd Garcia MD Collected: 04/25/2019 12:00 AM Ordering Location: [facility] Lab Received: 04/26/2019 11:54 AM Pathologist: Zofia Logan MD Specimen: Skin, right lat chin 0 8:44 AM BILLET CUTTER DERMATOPATHOLOGY LABORATORY Final Diagnosis Specimen A. SKIN, right lat chin: SEBORRHEIC KERATOSIS, IRRITATED (L82.0) EPIDERMAL NECROSIS SUGGESTIVE OF EXCORIATION (L98.499) MILIUM (L72.8) (see microscopic description) 0 8:44 AM BILLET CUTTER DERMATOPATHOLOGY LABORATORY at [address] [facility] Clinical History R/O BCC 0 8:44 AM [facility] DERMATOPATHOLOGY LABORATORY Gross Description Specimen A: Received is one formalin filled container labeled with the patient's name and designated right lat chin. The specimen consists of a shave biopsy measuring 8x7x2 mm. Jar 0. 0 8:44 AM [facility] DERMATOPATHOLOGY LABORATORY Microscopic Description Specimen A. SKIN, [...] were obtained and reviewed. 0 8:44 AM [facility] DERMATOPATHOLOGY LABORATORY Disclaimer An external and internal positive and negative controls are appropriate for the histochemical, immunohistochemical and immunofluorescence stain(s) in this case (if any), except where stated explicitly. The performance characteristics of the stain(s) cited in this report were developed and its performance characteristic determined by the Dermatopathology Laboratory at [facility], directed by Dr. Simone Logan. These tests need not be, and therefore are not, approved by the [place] Food and Drug Administration. The tests are used for clinical purposes. Billing Codes Specimen Charges Stain Charges 37590 1 0 8:44 AM [facility] DERMATOPATHOLOGY LABORATORY Embedded Images 0 8:44 AM [facility] DERMATOPATHOLOGY LABORATORY Pathology/Cytolog y TISSUE SPECIMEN FROM SKIN / Unknown 04/25/2019 04/26/2019 11:54 AM [facility] us Lloyd Garcia MD LAB - PATHOLOGY/CYTOLOGY ORD ERABLES Final Result DERMATOPATHOLOGY LABORATORY [facility] - Department of Dermatology [address] [place] [address], [facility] [phone] documented in this encounter Visit Diagnoses Not on filedocumented in this encounter
--- OUTSIDE RECORDS SUMMARY | 2024-12-17 07:59 | XMS_ITS | Clinical Summary ---
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
--- OUTSIDE RECORDS SUMMARY | 2024-12-17 07:59 | XMS_ITS | Clinical Summary ---
Author Organization [facility] Address [address] [place] [address] Care Team Providers Care Oil Separator Name Role Phone Unavailable Primary Care Provider Unavailabl e Source Comments [facility],non-owned Affiliates and Associated Physician Practices is amultiple site organization consisting of ambulatory clinics and hospital sitesin [place], [place], [place] and [place]. This disclosure is being madepursuant to the Care Everywhere program and may not contain all information available regarding this patient. Last updated 17.[facility] Social History Tobacco Use Types Packs/Day Years Used Date Smoking Tobacco: Never Assessed Comments Unknown Sex and Gender Information Value Date Recorded Sex Assigned at Not on file Legal Sex Female 11:45 AM HIDE OR SKIN BUFFER Gender Identity Not on file Sexual Orientation [...] yrs (1 - 1-dose 75+ series) 11/03/2015 DEPRESSION SCREENING 03/07/2024 COVID-19 VACCINE ( - 2023-2 5 season) 2024 INFLUENZA VACCINE (#1) 2024 HEPATITIS B VACCINE [...] age to complete this [place] [address] MEDICARE [facility]
--- OUTSIDE RECORDS SUMMARY | 2024-12-17 08:00 | XMS_ITS | Encounter Summary ---
Author Organization [facility] Address [address] [place] [address] Phone Care Team Providers Care Shore Man Name Role Phone Britton Valenzuela DO Primary [...] on file Legal Sex Female 1:58 AM ORDER BOOKER Gender Identity Female 07/15/2021 6:32 AM CDT [...] on filedocumented in this encounter Care Teams Shore Man Relationship Specialty Start Date End Date Britton Valenzuela DO PCP - General 06/04/16 documented as of this encounter
[2024-12-17 13:07] LABS: Alanine Aminotransferase 16 U/L (6-35); Albumin Level 3.9 g/dL (3.5-5.1); Alkaline Phosphatase 85 U/L (38-126); Anion Gap 5 mmol/L (4-12); Aspartate Amino Transferase 37 U/L (14-36); Bilirubin,Total 0.4 mg/dL (0.2-1.3); Blood Urea Nitrogen 16 mg/dL (7-17); Calcium 9.3 mg/dL (8.4-10.2); Carbon Dioxide 33 mmol/L (22-30); Chloride 104 mmol/L (98-107); Cholesterol 211 mg/dL (0-200); Estimated Glomerular Filt Rate > 60; Glucose 87 mg/dL (65-110); HDL Direct 65 mg/dL; Hematocrit 45.1 % (37.0-47.0); Hemoglobin 14.0 g/dL (12.0-15.0); Immature Granulocyte Percent A 0.6 % (0-0.5); Lymphocytes Absolute Auto 1.61 K/mm3 (0.9-3.2); Mean Corpuscular HGB Conc 31.0 g/dl (32-36); Mean Corpuscular Hemoglobin 31.2 pg (26-34); Mean Corpuscular Volume 100.4 fl (80-100); Nucleated Red Blood Cells Absolute Auto 0.000 K/mm3 (0.0-0.012); Nucleated Red Blood Cells Perc 0.0 % (0.0-0.2); Platelet Count Result 215 k/mm3 (150-375); Potassium 4.1 mmol/L (3.4-5.0); Red Blood Count 4.49 M/mm3 (4.2-5.4); Sodium 142 mmol/L (137-145); Total Protein 6.9 g/dL (6.3-8.2); Triglycerides 65 mg/dL (<150); White Blood Count 5.2 K/mm3 (4.5-10.0)
[2024-12-17 13:39] LABS: Hemoglobin A1C 5.7 % (<5.7)
[2024-12-17 13:42] LABS: Thyroid Stimulating Hormone 3.540 uIU/mL (0.465-4.680)
[2024-12-17 13:47] LABS: MALB Creatinine Ratio 11.4 mg/g (0-30)
== END 2024-12-17 07:53 | disposition home or self-care (01) ==
LOC: ANHGOSHLAB 07:53
PROVIDERS: PCP Internal Medicine; Visit Provider Clinical Nurse Specialist
DX: I10 Essential (primary) hypertension (principal); I51.81 Takotsubo syndrome; I21.9 Acute myocardial infarction, unspecified; E78.2 Mixed hyperlipidemia; E03.9 Hypothyroidism, unspecified; M85.80 Other specified disorders of bone density and structure, unspecified site; E55.9 Vitamin D deficiency, unspecified; R73.01 Impaired fasting glucose
CPT/HCPCS: 36415; 80053; 80061; 82043; 82306; 83036; 84443; 85025